=== PATIENT | female | born 1945 | race Caucasian/White ===

== ENCOUNTER 2017-03-17 16:19 | Inpatient (IN) | payer OTHER, MEDICARE ==
[~2017-03-17] VITALS: Ht 167.6 cm; Wt 86.2 kg
[~2017-03-17 16:19] MED LIST: CYPR4TAB34 PO; DULO60CA41 PO; IMII6 SQ; LISI-600 PO; OXYC20TA4 PO; POTA20TA83 PO; PREG75CA PO; SIMV40TA5 PO; ZOLP5TAB2 PO
[2017-03-17 16:20] VITALS: BP_SYST 101
[2017-03-17] MEDS ORDERED: DILTIAZEM HCL 125 MG/25 ML VIAL IV ONE (16:30)
[2017-03-17] MEDS ORDERED: MORP30TA59 PO (16:50)
[2017-03-17] MEDS ORDERED: WARF2.5T2 PO (16:50)
[2017-03-17] MEDS ORDERED: NOR10 PO (16:50)
[2017-03-17] MEDS ORDERED: LIP20 PO (16:50)
[2017-03-17] MEDS ORDERED: SOTA80TA PO (16:50)
[2017-03-17] MEDS ORDERED: HYDROmorphone 1 MG INJ. 1 MG/ML AMPUL IVP ONE (17:00)
[2017-03-17] MEDS ORDERED: NACL 0.9% 1,000 ML IV ONE (17:00)
[2017-03-17] MEDS ORDERED: DILTIAZEM HCL 25 MG/5 ML VIAL IVP ONE (17:00)
[2017-03-17 17:05] LABS: ANION GAP 12 (5-15); CHLORIDE 103 mmol/L (98-107); CREATININE 0.72 mg/dL (0.55-1.30); GLUCOSE 142 mg/dL (70-99); POTASSIUM 3.4 mmol/L (3.5-5.1); SODIUM SERUM 137 mmol/L (136-145); UREA NITROGEN, BLOOD 20 mg/dL (8-21)
[2017-03-17 17:10] LABS: ALANINE AMINOTRANSFERASE 30 U/L (12-78); ALBUMIN 3.2 g/dL (3.4-4.8); ASPARTATE AMINOTRANSFERASE 29 U/L (10-37); LIPASE 100 U/L (73-393)
[2017-03-17 17:16] LABS: BASOPHILS % (AUTO) 0.4 % (0.0-2.0); EOSINOPHILS % (AUTO) 0.1 % (0.0-4.0); HEMOGLOBIN 16.3 g/dL (12.0-16.0); LYMPHOCYTES % (AUTO) 12.4 % (20.5-51.5); MEAN CORPUSCULAR HEMOGLOBIN 29 pg (27-31); MEAN CORPUSCULAR HGB CONC 33 % (32-36); MEAN CORPUSCULAR VOLUME 87 fL (79.0-98.0); MONOCYTES # (AUTO) 0.6 K/uL (0.0-1.0); MONOCYTES % (AUTO) 7.6 % (1.7-9.3); NEUTROPHILS # (AUTO) 6.3 K/uL (1.8-7.7); NEUTROPHILS % (AUTO) 79.5 % (40.0-70.0); RED BLOOD CELL COUNT(AUTO) 5.66 MIL/uL (4.2-6.2); RED CELL DISTRIBUTION WIDTH 12.6 % (9.0-15.0); WHITE BLOOD COUNT (AUTO) 7.9 K/uL (4.8-10.8)
[2017-03-17 17:26] LABS: INR 4.9 (0.8-1.2); PROTHROMBIN TIME 51.2 SECS (9.5-12.5)
[2017-03-17 17:33] LABS: PLATELET COUNT (AUTO) 186 K/uL (130-430)
[2017-03-17 18:10] LABS: BILIRUBIN,URINE 1+ (NEGATIVE); CLARITY/URINE CLEAR (CLEAR); COLOR,URINE AMBER (YELLOW); GLUCOSE,URINE NEGATIVE (NEGATIVE); KETONES,URINE TRACE (NEGATIVE); LEUKOCYTE ESTERASE ,URINE NEGATIVE (NEGATIVE); NITRITE, URINE NEGATIVE (NEGATIVE); PH,URINE 6.5 (5.0-8.0); PROTEIN URINE 2+ (NEGATIVE); UROBILINOGEN,URINE 0.2 (0.2-1.0)
[2017-03-17 18:20] LABS: BLOOD, URINE TRACE (NEGATIVE)
[2017-03-17 18:31] LABS: BACTERIA,URINE FEW /HPF (None Seen)
[2017-03-17 18:32] LABS: MUCUS,URINE 2+ /LPF (None Seen)
[2017-03-17] MEDS ORDERED: DIPHENOXYLATE HCL/ATROP SULF 2.5 MG TAB PO ONE (18:45)
[2017-03-17 19:20] VITALS: BP_SYST 135
[2017-03-17 19:27] VITALS: BP_SYST 117
[2017-03-17] MEDS ORDERED: MORPHINE SULFATE 30 MG TABLET.SA PO SCH (21:00)
[2017-03-17] MEDS: ATORVASTATIN 20 MG TABLET PO SCH (21:19)
[2017-03-17] MEDS: DULoxetine HCL 30 MG CAPSULE.DR (CYMBALTA) PO SCH (21:19)
[2017-03-17] MEDS: SOTALOL HCL 80 MG TABLET PO SCH (21:21)
[2017-03-17] MEDS: CIPROFLOXACIN HCL 500 MG TABLET PO SCH (21:21)
[2017-03-17] MEDS: PREGABALIN 75 MG CAPSULE (LYRICA) PO SCH (21:21)
[2017-03-17] MEDS ORDERED: ZOLPIDEM TARTRATE 5 MG TABLET PO PRN (21:30)
[2017-03-17] MEDS: ZOLPIDEM TARTRATE 5 MG TABLET PO PRN (21:41)
[2017-03-17] MEDS: NACL 0.9% 1,000 ML IV SCH (21:42)
[2017-03-18] VITALS: BP_SYST 111
[2017-03-18] MEDS: HYDROmorphone 1 MG INJ. 1 MG/ML AMPUL IM PRN ×4 (00:09→19:03)
[2017-03-18 07:33] LABS: HEMATOCRIT 43.5 % (36-48); HEMOGLOBIN 14.6 g/dL (12.0-16.0); MEAN CORPUSCULAR HEMOGLOBIN 30 pg (27-31); MEAN CORPUSCULAR HGB CONC 34 % (32-36); MEAN CORPUSCULAR VOLUME 88 fL (79.0-98.0); PLATELET COUNT (AUTO) 177 K/uL (130-430); RED BLOOD CELL COUNT(AUTO) 4.93 MIL/uL (4.2-6.2); RED CELL DISTRIBUTION WIDTH 12.3 % (9.0-15.0); WHITE BLOOD COUNT (AUTO) 4.1 K/uL (4.8-10.8)
[2017-03-18 07:45] LABS: INR 3.1 (0.8-1.2)
[2017-03-18 08:05] LABS: ALANINE AMINOTRANSFERASE 26 U/L (12-78); ALBUMIN 2.7 g/dL (3.4-4.8); ANION GAP 9 (5-15); ASPARTATE AMINOTRANSFERASE 22 U/L (10-37); CALCIUM 7.4 mg/dL (8.4-11.0); CHLORIDE 104 mmol/L (98-107); CREATININE 0.52 mg/dL (0.55-1.30); GLUCOSE 91 mg/dL (70-99); SODIUM SERUM 137 mmol/L (136-145); TOTAL BILIRUBIN 1.3 mg/dL (0.0-1.0); UREA NITROGEN, BLOOD 17 mg/dL (8-21)
[2017-03-18 08:20] LABS: PROTHROMBIN TIME 32.4 SECS (9.5-12.5)
[2017-03-18 08:24] LABS: ATYPICAL LYMPHOCYTES % 8 % (0-0); BASOPHILS % (MANUAL) 0 % (0-2); EOSINOPHILS % (MANUAL) 0 % (0-7); LYMPHOCYTES % (MANUAL) 26 % (20-46); MONOCYTES % (MANUAL) 6 % (0-11)
[2017-03-18 08:38] LABS: POTASSIUM 2.4 mmol/L (3.5-5.1)
[2017-03-18 08:50] VITALS: BP_SYST 109
[2017-03-18] MEDS ORDERED: POTASSIUM CHLORIDE 60 MEQ in NS 500 ML IV SCH (09:06)
[2017-03-18] MEDS: SOTALOL HCL 80 MG TABLET PO SCH ×2 (09:13→21:14)
[2017-03-18] MEDS: PREGABALIN 75 MG CAPSULE (LYRICA) PO SCH ×2 (09:14→21:13)
[2017-03-18] MEDS: CIPROFLOXACIN HCL 500 MG TABLET PO SCH ×2 (09:14→21:25)
[2017-03-18] MEDS: DULoxetine HCL 30 MG CAPSULE.DR (CYMBALTA) PO SCH ×2 (09:14→21:14)
[2017-03-18] MEDS: amLODIPine BESYLATE 10 MG TABLET PO SCH (09:14)
[2017-03-18] MEDS: NACL 0.9% 1,000 ML IV SCH ×2 (09:15→21:27)
[2017-03-18 12:55] VITALS: BP_SYST 125
[2017-03-18 17:09] VITALS: BP_SYST 128
[2017-03-18] MEDS ORDERED: WARFARIN SODIUM 2.5 MG TABLET PO SCH (18:00)
[2017-03-18 20:00] VITALS: BP_SYST 117
[2017-03-18] MEDS ORDERED: ZOLPIDEM TARTRATE 5 MG TABLET PO SCH (21:00)
[2017-03-18] MEDS: ZOLPIDEM TARTRATE 5 MG TABLET PO PRN (21:13)
[2017-03-18] MEDS: ATORVASTATIN 20 MG TABLET PO SCH (21:14)
[2017-03-19 01:21] VITALS: BP_SYST 128
[2017-03-19 08:00] VITALS: BP_SYST 135
[2017-03-19 08:22] LABS: BASOPHILS % (AUTO) 0.3 % (0.0-2.0); EOSINOPHILS # (AUTO) 0.2 K/uL (0.0-0.4); EOSINOPHILS % (AUTO) 2.8 % (0.0-4.0); HEMATOCRIT 49.2 % (36-48); HEMOGLOBIN 15.9 g/dL (12.0-16.0); LYMPHOCYTES # (AUTO) 1.5 K/uL (1.0-5.5); LYMPHOCYTES % (AUTO) 19.9 % (20.5-51.5); MEAN CORPUSCULAR HEMOGLOBIN 29 pg (27-31); MEAN CORPUSCULAR HGB CONC 32 % (32-36); MEAN CORPUSCULAR VOLUME 89 fL (79.0-98.0); MONOCYTES # (AUTO) 0.5 K/uL (0.0-1.0); MONOCYTES % (AUTO) 7.1 % (1.7-9.3); NEUTROPHILS # (AUTO) 5.4 K/uL (1.8-7.7); NEUTROPHILS % (AUTO) 69.9 % (40.0-70.0); PLATELET COUNT (AUTO) 219 K/uL (130-430); RED BLOOD CELL COUNT(AUTO) 5.55 MIL/uL (4.2-6.2); RED CELL DISTRIBUTION WIDTH 12.6 % (9.0-15.0); WHITE BLOOD COUNT (AUTO) 7.6 K/uL (4.8-10.8)
[2017-03-19 08:36] LABS: INR 2.9 (0.8-1.2); PROTHROMBIN TIME 29.7 SECS (9.5-12.5)
[2017-03-19] MEDS: amLODIPine BESYLATE 10 MG TABLET PO SCH (08:44)
[2017-03-19] MEDS: HYDROmorphone 1 MG INJ. 1 MG/ML AMPUL IM PRN ×2 (08:45→18:44)
[2017-03-19] MEDS: SOTALOL HCL 80 MG TABLET PO SCH ×2 (08:46→20:50)
[2017-03-19] MEDS: DULoxetine HCL 30 MG CAPSULE.DR (CYMBALTA) PO SCH ×2 (08:46→20:49)
[2017-03-19] MEDS: PREGABALIN 75 MG CAPSULE (LYRICA) PO SCH ×2 (08:46→20:49)
[2017-03-19 08:50] LABS: ALANINE AMINOTRANSFERASE 29 U/L (12-78); ALBUMIN 3.3 g/dL (3.4-4.8); ANION GAP 12 (5-15); ASPARTATE AMINOTRANSFERASE 24 U/L (10-37); CALCIUM 7.7 mg/dL (8.4-11.0); CHLORIDE 105 mmol/L (98-107); CREATININE 0.41 mg/dL (0.55-1.30); GLUCOSE 91 mg/dL (70-99); LIPASE 178 U/L (73-393); SODIUM SERUM 137 mmol/L (136-145); THYROID STIMULATING HORMONE 1.21 uIu/mL (0.34-4.82); UREA NITROGEN, BLOOD 6 mg/dL (8-21)
[2017-03-19 08:56] LABS: POTASSIUM 2.8 mmol/L (3.5-5.1)
[2017-03-19] MEDS: NACL 0.9% 1,000 ML IV SCH (10:07)
[2017-03-19] MEDS: POTASSIUM CHLORIDE 20 MEQ/PKT PACKET PO SCH ×2 (10:07→14:03)
[2017-03-19] MEDS: CIPROFLOXACIN HCL 500 MG TABLET PO SCH ×2 (10:10→21:57)
[2017-03-19 12:48] VITALS: BP_SYST 123
[2017-03-19] MEDS ORDERED: LOPERAMIDE HCL 2 MG CAPSULE PO PRN (13:45)
[2017-03-19 16:13] LABS: POTASSIUM 3.7 mmol/L (3.5-5.1)
[2017-03-19 16:37] VITALS: BP_SYST 123
[2017-03-19 20:00] VITALS: BP_SYST 123
[2017-03-19] MEDS: ATORVASTATIN 20 MG TABLET PO SCH (20:49)
[2017-03-19] MEDS: ZOLPIDEM TARTRATE 5 MG TABLET PO PRN (21:58)
[2017-03-20 00:38] VITALS: BP_SYST 140
[2017-03-20] MEDS: NACL 0.9% 1,000 ML IV SCH (00:50)
[2017-03-20 07:07] LABS: HEMATOCRIT 47.5 % (36-48); HEMOGLOBIN 15.7 g/dL (12.0-16.0); MEAN CORPUSCULAR HEMOGLOBIN 29 pg (27-31); MEAN CORPUSCULAR HGB CONC 33 % (32-36); MEAN CORPUSCULAR VOLUME 89 fL (79.0-98.0); PLATELET COUNT (AUTO) 199 K/uL (130-430); RED BLOOD CELL COUNT(AUTO) 5.37 MIL/uL (4.2-6.2); RED CELL DISTRIBUTION WIDTH 12.8 % (9.0-15.0); WHITE BLOOD COUNT (AUTO) 7.3 K/uL (4.8-10.8)
[2017-03-20 08:00] VITALS: BP_SYST 135
[2017-03-20] MEDS ORDERED: CIPR-211 PO (08:16)
[2017-03-20 08:25] LABS: ALANINE AMINOTRANSFERASE 30 U/L (12-78); ALBUMIN 3.2 g/dL (3.4-4.8); ANION GAP 14 (5-15); ASPARTATE AMINOTRANSFERASE 28 U/L (10-37); CHLORIDE 106 mmol/L (98-107); CREATININE 0.48 mg/dL (0.55-1.30); GLUCOSE 107 mg/dL (70-99); POTASSIUM 3.3 mmol/L (3.5-5.1); SODIUM SERUM 137 mmol/L (136-145); TOTAL BILIRUBIN 0.9 mg/dL (0.0-1.0); UREA NITROGEN, BLOOD 4 mg/dL (8-21)
[2017-03-20] MEDS: PREGABALIN 75 MG CAPSULE (LYRICA) PO SCH (09:39)
[2017-03-20] MEDS: DULoxetine HCL 30 MG CAPSULE.DR (CYMBALTA) PO SCH (09:40)
[2017-03-20] MEDS: CIPROFLOXACIN HCL 500 MG TABLET PO SCH (09:40)
[2017-03-20] MEDS: SOTALOL HCL 80 MG TABLET PO SCH (09:42)
[2017-03-20] MEDS: amLODIPine BESYLATE 10 MG TABLET PO SCH (09:42)
[2017-03-20 09:51] LABS: INR 1.8 (0.8-1.2)
[2017-03-20 10:00] LABS: PROTHROMBIN TIME 18.8 SECS (9.5-12.5)
[2017-03-20 11:39] LABS: ATYPICAL LYMPHOCYTES % 1 % (0-0); BAND % (MANUAL) 0 % (0-6); BASOPHILS % (MANUAL) 0 % (0-2); EOSINOPHILS % (MANUAL) 0 % (0-7); LYMPHOCYTES % (MANUAL) 35 % (20-46); MONOCYTES % (MANUAL) 10 % (0-11)
[2017-03-20 11:43] VITALS: BP_SYST 113
[2017-03-20 12:00] VITALS: BP_SYST 134
[2017-03-20] MEDS ORDERED: POTASSIUM CHLORIDE 20 MEQ TAB.PRT.SR PO ONE (12:15)
[2017-03-20] MEDS ORDERED: WARFARIN SODIUM 2 MG TABLET PO SCH (18:00)
== END 2017-03-20 12:30 | disposition home or self-care (01) | DRG 281 ==
LOC: SED 16:19 → STU 18:38 → SMU 03-19 09:36
PROVIDERS: ADMIT Internal Medicine Hospice and Palliative Medicine; ATTEND Internal Medicine Hospice and Palliative Medicine
DX: I21.4 Non-ST elevation (NSTEMI) myocardial infarction (principal); I48.92 Unspecified atrial flutter; I95.9 Hypotension, unspecified; E86.0 Dehydration; I48.0 Paroxysmal atrial fibrillation; E87.6 Hypokalemia; I24.8 Other forms of acute ischemic heart disease; K52.9 Noninfective gastroenteritis and colitis, unspecified; I10 Essential (primary) hypertension; G89.4 Chronic pain syndrome; M79.7 Fibromyalgia; E66.9 Obesity, unspecified; M54.9 Dorsalgia, unspecified; I49.9 Cardiac arrhythmia, unspecified; Z85.038 Personal history of other malignant neoplasm of large intestine; Z79.01 Long term (current) use of anticoagulants; Z85.41 Personal history of malignant neoplasm of cervix uteri; Z90.49 Acquired absence of other specified parts of digestive tract; Z90.710 Acquired absence of both cervix and uterus; Z92.21 Personal history of antineoplastic chemotherapy; Z79.899 Other long term (current) drug therapy; Z68.30 Body mass index [BMI] 30.0-30.9, adult
CPT/HCPCS: 36415; 71010; 80053; 81000-TC; 82272; 83605; 83690-TC; 83735-TC; 84132-TC; 84443-TC; 84484; 85007; 85025; 85027; 85379; 85610-TC; 85730-TC; 87040-TC; 87045-TC; 87046; 87230-TC; 89055; 93005; 93306; 96361; 96374; 96375; 99291; J1170; J3480; J3490; J7030; J7040

== ENCOUNTER 2017-04-10 14:29 | Inpatient (IN) | payer OTHER, MEDICARE ==
[~2017-04-10] VITALS: Ht 167.6 cm; Wt 85.7 kg
[2017-04-10 14:29] VITALS: BP_SYST 93
[~2017-04-10 14:29] MED LIST changes: +CIPR-211 PO; -CYPR4TAB34 PO; -IMII6 SQ; +LIP20 PO; -LISI-600 PO; +MORP30TA59 PO; +NOR10 PO; -OXYC20TA4 PO; -POTA20TA83 PO; -SIMV40TA5 PO; +SOTA80TA PO; +WARF2.5T2 PO
[2017-04-10] MEDS ORDERED: NACL 0.9% 1,000 ML IV ONE ×2 (15:04→15:15)
[2017-04-10] MEDS ORDERED: ONDANSETRON HCL 4 MG/2 ML VIAL IVP ONE (15:15)
[2017-04-10] MEDS ORDERED: ASPIRIN 325 MG TABLET PO ONE (15:15)
[2017-04-10 15:36] LABS: BASOPHILS # (AUTO) 0.1 K/uL (0.0-0.2); BASOPHILS % (AUTO) 1.3 % (0.0-2.0); EOSINOPHILS % (AUTO) 0.1 % (0.0-4.0); HEMATOCRIT 50.8 % (36-48); HEMOGLOBIN 16.6 g/dL (12.0-16.0); LYMPHOCYTES # (AUTO) 2.3 K/uL (1.0-5.5); LYMPHOCYTES % (AUTO) 36.5 % (20.5-51.5); MEAN CORPUSCULAR HEMOGLOBIN 29 pg (27-31); MEAN CORPUSCULAR HGB CONC 33 % (32-36); MEAN CORPUSCULAR VOLUME 88 fL (79.0-98.0); MONOCYTES # (AUTO) 0.8 K/uL (0.0-1.0); MONOCYTES % (AUTO) 12.7 % (1.7-9.3); NEUTROPHILS # (AUTO) 3.1 K/uL (1.8-7.7); NEUTROPHILS % (AUTO) 49.4 % (40.0-70.0); PLATELET COUNT (AUTO) 148 K/uL (130-430); RED BLOOD CELL COUNT(AUTO) 5.76 MIL/uL (4.2-6.2); RED CELL DISTRIBUTION WIDTH 13.1 % (9.0-15.0); WHITE BLOOD COUNT (AUTO) 6.3 K/uL (4.8-10.8)
[2017-04-10 16:22] LABS: INR 2.2 (0.8-1.2); PROTHROMBIN TIME 22.7 SECS (9.5-12.5)
[2017-04-10 16:28] LABS: ANION GAP 15 (5-15); CALCIUM 9.4 mg/dL (8.4-11.0); CHLORIDE 97 mmol/L (98-107); CREATININE 1.17 mg/dL (0.55-1.30); GLUCOSE 180 mg/dL (70-99); POTASSIUM 3.5 mmol/L (3.5-5.1); SODIUM SERUM 134 mmol/L (136-145); UREA NITROGEN, BLOOD 16 mg/dL (8-21)
[2017-04-10 16:38] LABS: ALANINE AMINOTRANSFERASE 49 U/L (12-78); ALBUMIN 3.8 g/dL (3.4-4.8); AMYLASE 51 U/L (0-100); ASPARTATE AMINOTRANSFERASE 52 U/L (10-37); LIPASE 188 U/L (73-393); TOTAL BILIRUBIN 1.2 mg/dL (0.0-1.0)
[2017-04-10] MEDS ORDERED: OSELTAMIVIR PHOSPHATE 75 MG CAPSULE PO ONE (17:30)
[2017-04-10] MEDS ORDERED: PREG75CA PO (17:56)
[2017-04-10] MEDS ORDERED: ACETAMINOPHEN 325 MG TABLET PO PRN (20:15)
[2017-04-10] MEDS ORDERED: ONDANSETRON HCL 4 MG/2 ML VIAL IVP PRN (20:15)
[2017-04-10] MEDS: MORPHINE 2 MG/ML INJ. SYRINGE IVP PRN (23:27)
[2017-04-10] MEDS: NACL 0.9% 1,000 ML IV SCH (23:27)
[2017-04-10 23:32] LABS: BILIRUBIN,URINE 1+ (NEGATIVE); BLOOD, URINE NEGATIVE (NEGATIVE); CLARITY/URINE HAZY (CLEAR); COLOR,URINE YELLOW (YELLOW); GLUCOSE,URINE NEGATIVE (NEGATIVE); KETONES,URINE 1+ (NEGATIVE); LEUKOCYTE ESTERASE ,URINE NEGATIVE (NEGATIVE); NITRITE, URINE NEGATIVE (NEGATIVE); PROTEIN URINE 1+ (NEGATIVE)
[2017-04-10 23:41] LABS: BACTERIA,URINE MODERATE /HPF (None Seen); FINE GRANULAR CASTS,URINE 0-10 /LPF (None Seen); MUCUS,URINE 2+ /LPF (None Seen); RBC,URINE 0-3 /HPF (0-3); WBC,URINE 0-3 /HPF (0-3); YEAST,URINE Few /HPF (None Seen)
[2017-04-10] MEDS ORDERED: LORazepam 2 MG/ML VIAL IVP PRN (23:45)
[2017-04-10] MEDS ORDERED: BISACODYL 10 MG/SUPPOSITORY RC PRN (23:45)
[2017-04-10] MEDS ORDERED: POTASSIUM CHLORIDE 20 MEQ TAB.PRT.SR PO PRN (23:45)
[2017-04-10] MEDS ORDERED: SIMETHICONE 80 MG TAB.CHEW PO PRN (23:45)
[2017-04-10 23:49] VITALS: BP_SYST 112
[2017-04-11] VITALS (8 sets, daily range): BP systolic 71–150
[2017-04-11] MEDS: ZOLPIDEM TARTRATE 5 MG TABLET PO PRN ×2 (00:03→21:00)
[2017-04-11] MEDS: HYDROcodone/ACETAMIN 10-325 MG TAB PO PRN ×2 (01:35→17:20)
[2017-04-11 08:00] LABS: BASOPHILS % (AUTO) 0.2 % (0.0-2.0); EOSINOPHILS % (AUTO) 0.7 % (0.0-4.0); HEMATOCRIT 42.3 % (36-48); HEMOGLOBIN 14.3 g/dL (12.0-16.0); LYMPHOCYTES # (AUTO) 1.8 K/uL (1.0-5.5); LYMPHOCYTES % (AUTO) 36.5 % (20.5-51.5); MEAN CORPUSCULAR HEMOGLOBIN 30 pg (27-31); MEAN CORPUSCULAR HGB CONC 34 % (32-36); MEAN CORPUSCULAR VOLUME 89 fL (79.0-98.0); MONOCYTES # (AUTO) 0.9 K/uL (0.0-1.0); NEUTROPHILS # (AUTO) 2.1 K/uL (1.8-7.7); PLATELET COUNT (AUTO) 134 K/uL (130-430); RED BLOOD CELL COUNT(AUTO) 4.75 MIL/uL (4.2-6.2); WHITE BLOOD COUNT (AUTO) 4.8 K/uL (4.8-10.8)
[2017-04-11 08:34] LABS: AMYLASE 45 U/L (0-100); ANION GAP 14 (5-15); CALCIUM 8.3 mg/dL (8.4-11.0); CHLORIDE 101 mmol/L (98-107); CHOLESTEROL 146 mg/dL (<200); CREATININE 0.69 mg/dL (0.55-1.30); FREE T4 (FREE THYROXINE) 0.8 ng/dL (0.6-1.6); GLUCOSE 94 mg/dL (70-99); HDL CHOLESTEROL 55 mg/dL (>55); LDL CHOLESTEROL 68 mg/dL (<100); LIPASE 175 U/L (73-393); PHOSPHORUS 2.9 mg/dL (2.7-4.5); SODIUM SERUM 136 mmol/L (136-145); THYROID STIMULATING HORMONE 0.72 uIu/mL (0.34-4.82); TRIGLYCERIDES 81 mg/dL (30-150); UREA NITROGEN, BLOOD 17 mg/dL (8-21)
[2017-04-11 09:13] LABS: POTASSIUM 2.5 mmol/L (3.5-5.1)
[2017-04-11] MEDS: DOCUSATE SODIUM 100 MG CAPSULE PO SCH ×2 (09:24→20:58)
[2017-04-11] MEDS: MORPHINE 2 MG/ML INJ. SYRINGE IVP PRN (09:25)
[2017-04-11] MEDS ORDERED: POTASSIUM CHLORIDE 20 MEQ TAB.PRT.SR PO ONE (11:30)
[2017-04-11] MEDS ORDERED: OSELTAMIVIR PHOSPHATE 75 MG CAPSULE PO ONE (12:15)
[2017-04-11] MEDS ORDERED: LevALBUTEROL HCL 1.25 MG/0.5 ML *CONC.* VIAL.NEB (XOPENEX CONC.) INH PRN (12:30)
[2017-04-11] MEDS ORDERED: NACL 0.9% 1,000 ML IV ONE (12:30)
[2017-04-11 12:46] LABS: NEUTROPHILS % (AUTO) 44.6 % (40.0-70.0)
[2017-04-11] MEDS ORDERED: DILTIAZEM HCL 25 MG/5 ML VIAL IVP ONE (13:15)
[2017-04-11] MEDS ORDERED: DILTIAZEM HCL 30 MG TABLET PO ONE (13:30)
[2017-04-11] MEDS ORDERED: methylPREDNISolone SOD SUCC 40 MG/ML VIAL IVP ONE (13:30)
[2017-04-11] MEDS: LevALBUTEROL HCL 1.25 MG/0.5 ML *CONC.* VIAL.NEB (XOPENEX CONC.) INH SCH ×2 (13:43→19:49)
[2017-04-11] MEDS: NACL 0.9% 1,000 ML IV SCH (14:50)
[2017-04-11] MEDS: FLUCONAZOLE 200 mg/ NS 100 ML IV SCH (14:58)
[2017-04-11] MEDS: LEVOFLOXACIN 250 MG/D5W 50 ML IV SCH (17:14)
[2017-04-11] MEDS: WARFARIN SODIUM 2.5 MG TABLET PO SCH (17:15)
[2017-04-11] MEDS: PREGABALIN 75 MG CAPSULE (LYRICA) PO SCH (20:58)
[2017-04-11] MEDS: ATORVASTATIN 20 MG TABLET PO SCH (20:58)
[2017-04-11] MEDS: SOTALOL HCL 80 MG TABLET PO SCH (20:59)
[2017-04-11] MEDS: DILTIAZEM HCL 30 MG TABLET PO SCH (20:59)
[2017-04-11] MEDS: OSELTAMIVIR PHOSPHATE 75 MG CAPSULE PO SCH (21:00)
[2017-04-11] MEDS: MORPHINE SULFATE 30 MG TABLET.SA PO SCH (21:00)
[2017-04-11] MEDS: DULoxetine HCL 30 MG CAPSULE.DR (CYMBALTA) PO SCH (21:01)
[2017-04-11] MEDS ORDERED: KCL 40 mEq in 100 mL (PREMIX) 100 ML IV ONE (22:00)
[2017-04-12] VITALS: BP_SYST 98
[2017-04-12] MEDS: LevALBUTEROL HCL 1.25 MG/0.5 ML *CONC.* VIAL.NEB (XOPENEX CONC.) INH SCH ×4 (01:00→19:40)
[2017-04-12] MEDS: NACL 0.9% 1,000 ML IV SCH ×2 (01:27→11:43)
[2017-04-12] MEDS: DILTIAZEM HCL 30 MG TABLET PO SCH ×3 (06:08→22:03)
[2017-04-12 07:38] LABS: BASOPHILS % (AUTO) 0.1 % (0.0-2.0); EOSINOPHILS % (AUTO) 0.1 % (0.0-4.0); HEMATOCRIT 38.9 % (36-48); HEMOGLOBIN 13.3 g/dL (12.0-16.0); LYMPHOCYTES # (AUTO) 1.5 K/uL (1.0-5.5); LYMPHOCYTES % (AUTO) 41.6 % (20.5-51.5); MEAN CORPUSCULAR HEMOGLOBIN 30 pg (27-31); MEAN CORPUSCULAR HGB CONC 34 % (32-36); MEAN CORPUSCULAR VOLUME 88 fL (79.0-98.0); MONOCYTES # (AUTO) 0.5 K/uL (0.0-1.0); MONOCYTES % (AUTO) 14.5 % (1.7-9.3); NEUTROPHILS # (AUTO) 1.7 K/uL (1.8-7.7); NEUTROPHILS % (AUTO) 43.7 % (40.0-70.0); PLATELET COUNT (AUTO) 123 K/uL (130-430); RED BLOOD CELL COUNT(AUTO) 4.44 MIL/uL (4.2-6.2); RED CELL DISTRIBUTION WIDTH 13.4 % (9.0-15.0); WHITE BLOOD COUNT (AUTO) 3.7 K/uL (4.8-10.8)
[2017-04-12 07:42] LABS: ANION GAP 7 (5-15); CALCIUM 7.6 mg/dL (8.4-11.0); CHLORIDE 106 mmol/L (98-107); CREATININE 0.57 mg/dL (0.55-1.30); GLUCOSE 139 mg/dL (70-99); POTASSIUM 3.9 mmol/L (3.5-5.1); SODIUM SERUM 137 mmol/L (136-145); UREA NITROGEN, BLOOD 10 mg/dL (8-21)
[2017-04-12 08:00] VITALS: BP_SYST 125
[2017-04-12 08:03] LABS: INR 1.8 (0.8-1.2); PROTHROMBIN TIME 18.4 SECS (9.5-12.5)
[2017-04-12] MEDS: amLODIPine BESYLATE 10 MG TABLET PO SCH (08:43)
[2017-04-12] MEDS: SOTALOL HCL 80 MG TABLET PO SCH ×2 (08:43→22:03)
[2017-04-12] MEDS: OSELTAMIVIR PHOSPHATE 75 MG CAPSULE PO SCH ×2 (08:43→22:03)
[2017-04-12] MEDS: PREGABALIN 75 MG CAPSULE (LYRICA) PO SCH ×2 (08:44→22:03)
[2017-04-12] MEDS: DOCUSATE SODIUM 100 MG CAPSULE PO SCH ×2 (08:44→22:02)
[2017-04-12] MEDS: MORPHINE SULFATE 30 MG TABLET.SA PO SCH ×2 (08:44→22:01)
[2017-04-12] MEDS: DULoxetine HCL 30 MG CAPSULE.DR (CYMBALTA) PO SCH ×2 (08:44→22:03)
[2017-04-12] MEDS ORDERED: VANCOMYCIN HCL 1 GM/NS PREMIX 250 ML IV ONE (10:45)
[2017-04-12] MEDS ORDERED: MAGNESIUM SULFATE 50 ML IV ONE (10:45)
[2017-04-12 12:10] VITALS: BP_SYST 110
[2017-04-12] MEDS: LEVOFLOXACIN 250 MG/D5W 50 ML IV SCH (12:28)
[2017-04-12] MEDS: FLUCONAZOLE 200 mg/ NS 100 ML IV SCH (13:44)
[2017-04-12 16:00] VITALS: BP_SYST 112
[2017-04-12] MEDS: WARFARIN SODIUM 2.5 MG TABLET PO SCH (18:08)
[2017-04-12 20:00] VITALS: BP_SYST 113
[2017-04-12] MEDS: ATORVASTATIN 20 MG TABLET PO SCH (22:01)
[2017-04-12] MEDS: ZOLPIDEM TARTRATE 5 MG TABLET PO PRN (22:03)
[2017-04-13] VITALS: BP_SYST 116
[2017-04-13] MEDS: LevALBUTEROL HCL 1.25 MG/0.5 ML *CONC.* VIAL.NEB (XOPENEX CONC.) INH SCH ×3 (01:00→13:48)
[2017-04-13] MEDS: NACL 0.9% 1,000 ML IV SCH ×2 (02:35→08:49)
[2017-04-13 03:06] LABS: T4 (THYROXINE) 9.5 ug/dL (4.5-12.0)
[2017-04-13] MEDS: DILTIAZEM HCL 30 MG TABLET PO SCH ×2 (06:38→14:09)
[2017-04-13 07:50] LABS: BASOPHILS % (AUTO) 0.3 % (0.0-2.0); EOSINOPHILS % (AUTO) 0.3 % (0.0-4.0); HEMOGLOBIN 13.4 g/dL (12.0-16.0); LYMPHOCYTES # (AUTO) 1.9 K/uL (1.0-5.5); LYMPHOCYTES % (AUTO) 45.1 % (20.5-51.5); MEAN CORPUSCULAR HEMOGLOBIN 30 pg (27-31); MEAN CORPUSCULAR HGB CONC 34 % (32-36); MEAN CORPUSCULAR VOLUME 88 fL (79.0-98.0); MONOCYTES # (AUTO) 0.5 K/uL (0.0-1.0); MONOCYTES % (AUTO) 12.4 % (1.7-9.3); NEUTROPHILS # (AUTO) 1.8 K/uL (1.8-7.7); NEUTROPHILS % (AUTO) 41.9 % (40.0-70.0); PLATELET COUNT (AUTO) 125 K/uL (130-430); RED BLOOD CELL COUNT(AUTO) 4.44 MIL/uL (4.2-6.2); RED CELL DISTRIBUTION WIDTH 13.1 % (9.0-15.0); WHITE BLOOD COUNT (AUTO) 4.2 K/uL (4.8-10.8)
[2017-04-13 08:00] VITALS: BP_SYST 104
[2017-04-13 08:44] LABS: ALANINE AMINOTRANSFERASE 32 U/L (12-78); ALBUMIN 2.8 g/dL (3.4-4.8); ANION GAP 9 (5-15); ASPARTATE AMINOTRANSFERASE 31 U/L (10-37); CALCIUM 7.7 mg/dL (8.4-11.0); CHLORIDE 105 mmol/L (98-107); CREATININE 0.54 mg/dL (0.55-1.30); GLUCOSE 85 mg/dL (70-99); SODIUM SERUM 137 mmol/L (136-145); TOTAL BILIRUBIN 0.6 mg/dL (0.0-1.0); UREA NITROGEN, BLOOD 7 mg/dL (8-21)
[2017-04-13] MEDS: MORPHINE SULFATE 30 MG TABLET.SA PO SCH (08:54)
[2017-04-13] MEDS: PREGABALIN 75 MG CAPSULE (LYRICA) PO SCH (08:54)
[2017-04-13] MEDS: OSELTAMIVIR PHOSPHATE 75 MG CAPSULE PO SCH (08:55)
[2017-04-13] MEDS: SOTALOL HCL 80 MG TABLET PO SCH (08:55)
[2017-04-13] MEDS: DULoxetine HCL 30 MG CAPSULE.DR (CYMBALTA) PO SCH (08:55)
[2017-04-13] MEDS: DOCUSATE SODIUM 100 MG CAPSULE PO SCH (08:55)
[2017-04-13] MEDS: amLODIPine BESYLATE 10 MG TABLET PO SCH (08:56)
[2017-04-13 09:14] LABS: POTASSIUM 2.9 mmol/L (3.5-5.1)
[2017-04-13] MEDS ORDERED: POTASSIUM CHLORIDE 20 MEQ TAB.PRT.SR PO ONE (09:30)
[2017-04-13 09:39] LABS: PROTHROMBIN TIME 20.2 SECS (9.5-12.5)
[2017-04-13 12:25] VITALS: BP_SYST 105
[2017-04-13] MEDS: LEVOFLOXACIN 250 MG/D5W 50 ML IV SCH (14:02)
[2017-04-13] MEDS: FLUCONAZOLE 200 mg/ NS 100 ML IV SCH (14:06)
[2017-04-13 15:12] LABS: HEMOGLOBIN A1C 5.9 % (4.8-5.6)
[2017-04-13 15:43] VITALS: BP_SYST 100
[2017-04-13 16:37] VITALS: BP_SYST 100
== END 2017-04-13 16:14 | disposition home or self-care (01) | DRG 872 ==
LOC: SED 14:29 → SMU 17:36 → STU 04-11 23:31 → SMU 04-12 13:17
PROVIDERS: ADMIT Family Medicine; ATTEND Family Medicine
DX: A41.9 Sepsis, unspecified organism (principal); I95.9 Hypotension, unspecified; G62.9 Polyneuropathy, unspecified; I48.91 Unspecified atrial fibrillation; N39.0 Urinary tract infection, site not specified; E83.42 Hypomagnesemia; B48.8 Other specified mycoses; M54.5 Low back pain; B37.9 Candidiasis, unspecified; E86.0 Dehydration; I10 Essential (primary) hypertension; R55 Syncope and collapse; J11.1 Influenza due to unidentified influenza virus with other respiratory manifestations; M79.7 Fibromyalgia; G47.00 Insomnia, unspecified; G89.29 Other chronic pain; E87.6 Hypokalemia; Z79.899 Other long term (current) drug therapy; Z85.038 Personal history of other malignant neoplasm of large intestine; Z85.41 Personal history of malignant neoplasm of cervix uteri; Z90.49 Acquired absence of other specified parts of digestive tract; Z90.710 Acquired absence of both cervix and uterus
CPT/HCPCS: 36415; 71045; 80048; 80053; 80061; 81000-TC; 82150-TC; 82550-TC; 82962; 83036; 83690-TC; 83735-TC; 83880; 84100-TC; 84436; 84439; 84443-TC; 84479; 84484; 85025; 85610-TC; 85730-TC; 86710; 87040-TC; 87081; 87086; 93005; 94640; 94760; 96365; 96375; 99285; G9035; J1030; J1450; J1956; J2270; J2274; J2405; J3370; J3475; J3480; J3490; J7030

== ENCOUNTER 2017-10-25 02:21 | Emergency (ER) | payer MEDICARE, OTHER ==
[~2017-10-25] VITALS: Ht 167.6 cm; Wt 89.8 kg
[~2017-10-25 02:21] MED LIST changes: -CIPR-211 PO; -ZOLP5TAB2 PO
[2017-10-25 02:26] VITALS: BP_SYST 116
[2017-10-25] MEDS ORDERED: HYDROcodone/ACETAMIN 5-325 MG TAB (NORCO/ VICODIN) PO ONE (03:15)
[2017-10-25 04:45] LABS: BASOPHILS # (AUTO) 0.1 K/uL (0.0-0.2); EOSINOPHILS # (AUTO) 0.1 K/uL (0.0-0.4); HEMATOCRIT 41.2 % (36-48); HEMOGLOBIN 13.8 g/dL (12.0-16.0); LYMPHOCYTES # (AUTO) 3.2 K/uL (1.0-5.5); LYMPHOCYTES % (AUTO) 42.4 % (20.5-51.5); MEAN CORPUSCULAR HEMOGLOBIN 30 pg (27-31); MEAN CORPUSCULAR HGB CONC 33 % (32-36); MEAN CORPUSCULAR VOLUME 91 fL (79.0-98.0); MONOCYTES # (AUTO) 0.5 K/uL (0.0-1.0); MONOCYTES % (AUTO) 7.3 % (1.7-9.3); NEUTROPHILS # (AUTO) 3.6 K/uL (1.8-7.7); NEUTROPHILS % (AUTO) 47.3 % (40.0-70.0); PLATELET COUNT (AUTO) 180 K/uL (130-430); RED BLOOD CELL COUNT(AUTO) 4.54 MIL/uL (4.2-6.2); RED CELL DISTRIBUTION WIDTH 13.2 % (9.0-15.0); WHITE BLOOD COUNT (AUTO) 7.5 K/uL (4.8-10.8)
[2017-10-25 04:50] LABS: ANION GAP 6 (5-15); CALCIUM 8.3 mg/dL (8.4-11.0); CHLORIDE 107 mmol/L (98-107); CREATININE 0.76 mg/dL (0.55-1.30); GLUCOSE 135 mg/dL (70-99); POTASSIUM 3.3 mmol/L (3.5-5.1); SODIUM SERUM 140 mmol/L (136-145); UREA NITROGEN, BLOOD 12 mg/dL (8-21)
[2017-10-25 05:05] LABS: PROTHROMBIN TIME 30.1 SECS (9.5-12.5)
[2017-10-25 05:06] LABS: INR 2.9 (0.8-1.2)
[2017-10-25 05:13] VITALS: BP_SYST 129
== END 2017-10-25 05:13 | disposition home or self-care (01) ==
LOC: SED 02:21
DX: S20.211A Contusion of right front wall of thorax, initial encounter (principal); S40.021A Contusion of right upper arm, initial encounter; I48.91 Unspecified atrial fibrillation; M79.7 Fibromyalgia; I10 Essential (primary) hypertension; Z85.41 Personal history of malignant neoplasm of cervix uteri; Z85.038 Personal history of other malignant neoplasm of large intestine; Z79.899 Other long term (current) drug therapy; W01.0XXA Fall on same level from slipping, tripping and stumbling without subsequent striking against object, initial encounter; Y93.89 Activity, other specified; Y92.89 Other specified places as the place of occurrence of the external cause; Y99.8 Other external cause status
CPT/HCPCS: 36415; 71045; 80048; 85025; 85610-TC; 93005; 99285

== ENCOUNTER 2018-01-24 03:59 | Emergency (ER) | payer OTHER, MEDICARE ==
[~2018-01-24] VITALS: Ht 167.6 cm; Wt 86.2 kg
[2018-01-24 04:15] VITALS: BP_SYST 115
[2018-01-24] MEDS ORDERED: HYDROcodone/ACETAMIN 5-325 MG TAB (NORCO/ VICODIN) PO ONE ×2 (04:30)
[2018-01-24] MEDS ORDERED: MORPHINE 4 MG/ML INJ. SYRINGE IM ONE (05:15)
[2018-01-24] MEDS ORDERED: MORPHINE 4 MG/ML INJ. SYRINGE IVP ONE (06:00)
[2018-01-24] MEDS ORDERED: KETAMINE 30 MG/3 ML SYRINGE IVP ONE (06:45)
[2018-01-24 07:53] LABS: BASOPHILS % (AUTO) 0.3 % (0.0-2.0); EOSINOPHILS # (AUTO) 0.1 K/uL (0.0-0.4); EOSINOPHILS % (AUTO) 1.1 % (0.0-4.0); HEMATOCRIT 41.8 % (36-48); LYMPHOCYTES # (AUTO) 2.6 K/uL (1.0-5.5); LYMPHOCYTES % (AUTO) 25.1 % (20.5-51.5); MEAN CORPUSCULAR HEMOGLOBIN 30 pg (27-31); MEAN CORPUSCULAR HGB CONC 33 % (32-36); MEAN CORPUSCULAR VOLUME 90 fL (79.0-98.0); MONOCYTES # (AUTO) 0.6 K/uL (0.0-1.0); MONOCYTES % (AUTO) 5.4 % (1.7-9.3); NEUTROPHILS # (AUTO) 7.2 K/uL (1.8-7.7); NEUTROPHILS % (AUTO) 68.1 % (40.0-70.0); PLATELET COUNT (AUTO) 192 K/uL (130-430); RED BLOOD CELL COUNT(AUTO) 4.65 MIL/uL (4.2-6.2); RED CELL DISTRIBUTION WIDTH 12.7 % (9.0-15.0); WHITE BLOOD COUNT (AUTO) 10.5 K/uL (4.8-10.8)
[2018-01-24 07:55] VITALS: BP_SYST 157
[2018-01-24 08:00] LABS: ANION GAP 9 (5-15); CALCIUM 8.4 mg/dL (8.4-11.0); CHLORIDE 105 mmol/L (98-107); CREATININE 0.82 mg/dL (0.55-1.30); GLUCOSE 116 mg/dL (70-99); POTASSIUM 4.1 mmol/L (3.5-5.1); SODIUM SERUM 140 mmol/L (136-145); UREA NITROGEN, BLOOD 26 mg/dL (8-21)
[2018-01-24 08:11] LABS: ALANINE AMINOTRANSFERASE 28 U/L (12-78); ASPARTATE AMINOTRANSFERASE 21 U/L (10-37); TOTAL BILIRUBIN 0.9 mg/dL (0.0-1.0)
[2018-01-24 08:15] LABS: INR 2.9 (0.8-1.2)
[2018-01-24 08:18] LABS: PROTHROMBIN TIME 30.2 SECS (9.5-12.5)
== END 2018-01-24 07:55 | disposition short-term general hospital (02) ==
LOC: SED 03:59
DX: S06.5X9A Traumatic subdural hemorrhage with loss of consciousness of unspecified duration, initial encounter (principal); M54.2 Cervicalgia; M54.5 Low back pain; I48.91 Unspecified atrial fibrillation; I10 Essential (primary) hypertension; M79.7 Fibromyalgia; Z79.01 Long term (current) use of anticoagulants; Z79.899 Other long term (current) drug therapy; W18.30XA Fall on same level, unspecified, initial encounter; Y93.89 Activity, other specified; Y92.002 Bathroom of unspecified non-institutional (private) residence as the place of occurrence of the external cause; Y99.8 Other external cause status
CPT/HCPCS: 36415; 70450; 72125; 72128; 80053; 84484; 85025; 85610; 85730; 93005; 96372; 96374; 96375; 99285; J2270

== ENCOUNTER 2018-02-04 10:46 | Emergency (ER) | payer OTHER, MEDICARE ==
[~2018-02-04] VITALS: Ht 167.6 cm; Wt 85.3 kg
[2018-02-04 10:46] VITALS: BP_SYST 132
[2018-02-04] MEDS ORDERED: MORPHINE 4 MG/ML INJ. SYRINGE IVP ONE (13:00)
[2018-02-04 14:08] LABS: BASOPHILS # (AUTO) 0.1 K/uL (0.0-0.2); BASOPHILS % (AUTO) 1.3 % (0.0-2.0); EOSINOPHILS # (AUTO) 0.1 K/uL (0.0-0.4); EOSINOPHILS % (AUTO) 1.8 % (0.0-4.0); HEMATOCRIT 46.2 % (36-48); HEMOGLOBIN 14.9 g/dL (12.0-16.0); LYMPHOCYTES # (AUTO) 2.4 K/uL (1.0-5.5); LYMPHOCYTES % (AUTO) 36.6 % (20.5-51.5); MEAN CORPUSCULAR HEMOGLOBIN 30 pg (27-31); MEAN CORPUSCULAR HGB CONC 32 % (32-36); MEAN CORPUSCULAR VOLUME 92 fL (79.0-98.0); MONOCYTES # (AUTO) 0.5 K/uL (0.0-1.0); MONOCYTES % (AUTO) 7.3 % (1.7-9.3); NEUTROPHILS # (AUTO) 3.6 K/uL (1.8-7.7); PLATELET COUNT (AUTO) 215 K/uL (130-430); RED BLOOD CELL COUNT(AUTO) 5.01 MIL/uL (4.2-6.2); RED CELL DISTRIBUTION WIDTH 12.9 % (9.0-15.0); WHITE BLOOD COUNT (AUTO) 6.7 K/uL (4.8-10.8)
[2018-02-04 14:10] LABS: ANION GAP 7 (5-15); CALCIUM 8.9 mg/dL (8.4-11.0); CHLORIDE 105 mmol/L (98-107); CREATININE 0.61 mg/dL (0.55-1.30); GLUCOSE 101 mg/dL (70-99); POTASSIUM 3.4 mmol/L (3.5-5.1); SODIUM SERUM 141 mmol/L (136-145); UREA NITROGEN, BLOOD 15 mg/dL (8-21)
[2018-02-04 14:15] LABS: ALANINE AMINOTRANSFERASE 27 U/L (12-78); ALBUMIN 3.1 g/dL (3.4-4.8); ASPARTATE AMINOTRANSFERASE 19 U/L (10-37); TOTAL BILIRUBIN 0.8 mg/dL (0.0-1.0)
[2018-02-04 14:55] LABS: BILIRUBIN,URINE NEGATIVE (NEGATIVE); BLOOD, URINE NEGATIVE (NEGATIVE); CLARITY/URINE CLEAR (CLEAR); COLOR,URINE YELLOW (YELLOW); GLUCOSE,URINE NEGATIVE (NEGATIVE); KETONES,URINE NEGATIVE (NEGATIVE); LEUKOCYTE ESTERASE ,URINE TRACE (NEGATIVE); NITRITE, URINE NEGATIVE (NEGATIVE); PROTEIN URINE NEGATIVE (NEGATIVE)
[2018-02-04 15:03] LABS: BACTERIA,URINE FEW /HPF (None Seen); MUCUS,URINE 1+ /LPF (None Seen); RBC,URINE 0-3 /HPF (0-3); WBC,URINE 0-3 /HPF (0-3)
[2018-02-04 16:14] VITALS: BP_SYST 130
== END 2018-02-04 16:14 | disposition home or self-care (01) ==
LOC: SED 10:46
DX: S32.019A Unspecified fracture of first lumbar vertebra, initial encounter for closed fracture (principal); I10 Essential (primary) hypertension; M79.7 Fibromyalgia; I48.91 Unspecified atrial fibrillation; Z90.710 Acquired absence of both cervix and uterus; Z79.01 Long term (current) use of anticoagulants; Z79.899 Other long term (current) drug therapy; W01.0XXA Fall on same level from slipping, tripping and stumbling without subsequent striking against object, initial encounter; Y93.89 Activity, other specified; Y92.89 Other specified places as the place of occurrence of the external cause; Y99.8 Other external cause status
CPT/HCPCS: 36415; 72131; 80053; 81000; 85025; 87086; 96374; 99285; J2270

== ENCOUNTER 2018-03-25 10:52 | Emergency (ER) | payer OTHER, MEDICARE ==
[~2018-03-25] VITALS: Ht 167.6 cm; Wt 89.8 kg
[2018-03-25 10:52] VITALS: BP_SYST 129
[2018-03-25] MEDS ORDERED: MORPHINE 4 MG/ML INJ. SYRINGE IM ONE (11:15)
[2018-03-25] MEDS ORDERED: traMADol HCL HCL 50 MG TABLET (ULTRAM) PO ONE (11:45)
[2018-03-25 12:10] VITALS: BP_SYST 129
== END 2018-03-25 12:10 | disposition home or self-care (01) ==
LOC: SED 10:52
DX: S20.211A Contusion of right front wall of thorax, initial encounter (principal); I48.91 Unspecified atrial fibrillation; M79.7 Fibromyalgia; I10 Essential (primary) hypertension; Z85.038 Personal history of other malignant neoplasm of large intestine; Z85.41 Personal history of malignant neoplasm of cervix uteri; Z90.710 Acquired absence of both cervix and uterus; Z79.899 Other long term (current) drug therapy; W01.190A Fall on same level from slipping, tripping and stumbling with subsequent striking against furniture, initial encounter; Y93.89 Activity, other specified; Y92.89 Other specified places as the place of occurrence of the external cause; Y99.8 Other external cause status
CPT/HCPCS: 71100; 96372; 99283; J2270

== ENCOUNTER 2018-05-15 13:23 | Emergency (ER) | payer BC ==
[~2018-05-15] VITALS: Ht 167.6 cm; Wt 81.6 kg
[2018-05-15] MEDS ORDERED: NACL 0.9% 1,000 ML IV ONE (13:31)
[2018-05-15] MEDS ORDERED: FAMOTIDINE 20 MG TABLET PO ONE (13:45)
[2018-05-15 14:03] VITALS: BP_SYST 106
[2018-05-15] MEDS ORDERED: KETOROLAC TROMETHAMINE 60 MG/2 ML VIAL IM ONE (14:30)
[2018-05-15 15:25] LABS: BASOPHILS % (AUTO) 0.6 % (0.0-2.0); EOSINOPHILS # (AUTO) 0.2 K/uL (0.0-0.4); HEMATOCRIT 49.9 % (36-48); HEMOGLOBIN 16.2 g/dL (12.0-16.0); LYMPHOCYTES # (AUTO) 3.1 K/uL (1.0-5.5); LYMPHOCYTES % (AUTO) 41.2 % (20.5-51.5); MEAN CORPUSCULAR HEMOGLOBIN 29 pg (27-31); MEAN CORPUSCULAR HGB CONC 32 % (32-36); MEAN CORPUSCULAR VOLUME 89 fL (79.0-98.0); MONOCYTES # (AUTO) 0.5 K/uL (0.0-1.0); MONOCYTES % (AUTO) 6.2 % (1.7-9.3); NEUTROPHILS # (AUTO) 3.8 K/uL (1.8-7.7); RED BLOOD CELL COUNT(AUTO) 5.62 MIL/uL (4.2-6.2); RED CELL DISTRIBUTION WIDTH 12.5 % (9.0-15.0); WHITE BLOOD COUNT (AUTO) 7.6 K/uL (4.8-10.8)
[2018-05-15 15:31] LABS: PLATELET COUNT (AUTO) 200 K/uL (130-430)
[2018-05-15 15:37] LABS: INR 1.2 (0.8-1.2); PROTHROMBIN TIME 12.1 SECS (9.5-12.5)
[2018-05-15 15:43] LABS: ANION GAP 7 (5-15); CALCIUM 8.8 mg/dL (8.4-11.0); CHLORIDE 107 mmol/L (98-107); CREATININE 0.61 mg/dL (0.55-1.30); GLUCOSE 101 mg/dL (70-99); POTASSIUM 3.8 mmol/L (3.5-5.1); SODIUM SERUM 142 mmol/L (136-145); UREA NITROGEN, BLOOD 17 mg/dL (8-21)
[2018-05-15 15:44] LABS: ALANINE AMINOTRANSFERASE 24 U/L (12-78); ALBUMIN 3.4 g/dL (3.4-4.8); AMYLASE 50 U/L (0-100); ASPARTATE AMINOTRANSFERASE 17 U/L (10-37); LIPASE 132 U/L (73-393); TOTAL BILIRUBIN 0.9 mg/dL (0.0-1.0)
[2018-05-15 15:56] LABS: BLOOD, URINE NEGATIVE (NEGATIVE); CLARITY/URINE CLEAR (CLEAR); COLOR,URINE AMBER (YELLOW); GLUCOSE,URINE TRACE (NEGATIVE); KETONES,URINE 1+ (NEGATIVE); LEUKOCYTE ESTERASE ,URINE NEGATIVE (NEGATIVE); PH,URINE 6.5 (5.0-8.0); PROTEIN URINE 2+ (NEGATIVE)
[2018-05-15 16:06] LABS: BILIRUBIN,URINE NEGATIVE (NEGATIVE); NITRITE, URINE NEGATIVE (NEGATIVE)
[2018-05-15 16:07] LABS: BACTERIA,URINE FEW /HPF (None Seen); RBC,URINE NONE SEEN /HPF (0-3); WBC,URINE 0-3 /HPF (0-3)
[2018-05-15 16:08] LABS: MUCUS,URINE 3+ /LPF (None Seen)
[2018-05-15 16:40] VITALS: BP_SYST 116
== END 2018-05-15 16:40 | disposition home or self-care (01) ==
LOC: SED 13:23
DX: S29.011A Strain of muscle and tendon of front wall of thorax, initial encounter (principal); I48.91 Unspecified atrial fibrillation; M79.7 Fibromyalgia; I10 Essential (primary) hypertension; Z85.038 Personal history of other malignant neoplasm of large intestine; Z85.41 Personal history of malignant neoplasm of cervix uteri; Z90.710 Acquired absence of both cervix and uterus; Z79.899 Other long term (current) drug therapy; X58.XXXA Exposure to other specified factors, initial encounter; Y93.89 Activity, other specified; Y92.89 Other specified places as the place of occurrence of the external cause; Y99.8 Other external cause status
CPT/HCPCS: 36415; 71045; 80053; 81000; 82150; 82550; 83605; 83690; 84484; 85025; 85610; 85730; 87040; 93005; 96372; 99284; J1885; J7030

== ENCOUNTER 2018-08-11 08:54 | Emergency (ER) | payer BC ==
[~2018-08-11] VITALS: Ht 167.6 cm; Wt 86.2 kg
[2018-08-11 08:59] VITALS: BP_SYST 136
--- NOTE | 2018-08-11 09:08 | NUR ---
Patient to ER bed 4 to gown for evaluation. Side rails up. Report given to Mandeep SWANSON.
--- NOTE | 2018-08-11 09:09 | NUR ---
Pt is here for c/o left side pain radiating flank since yesterday morning, nausea, denied vomiting, denied pain upon urination, afebrile. Per pt, pt took Morphine and [place] last night for pain, but does not help, pain is 8-9/10. VSS, pt is placed on monitor. Will continue to monitor.
[2018-08-11] MEDS ORDERED: NACL 0.9% 1,000 ML IV ONE (09:16)
[2018-08-11] MEDS ORDERED: MORPHINE 4 MG/ML INJ. SYRINGE IVP ONE (09:30)
[2018-08-11] MEDS ORDERED: ONDANSETRON HCL 4 MG/2 ML VIAL IVP ONE (09:30)
--- NOTE | 2018-08-11 09:30 | NUR ---
Dr. Reveles @ bedside for examination.
--- NOTE | 2018-08-11 09:45 | NUR ---
Pt taken to x ray with tech, no acute distress noted.
[2018-08-11 10:18] LABS: BASOPHILS % (AUTO) 0.7 % (0.0-2.0); EOSINOPHILS # (AUTO) 0.1 K/uL (0.0-0.4); EOSINOPHILS % (AUTO) 1.8 % (0.0-4.0); HEMATOCRIT 46.1 % (36-48); HEMOGLOBIN 15.5 g/dL (12.0-16.0); LYMPHOCYTES % (AUTO) 40.8 % (20.5-51.5); MEAN CORPUSCULAR HEMOGLOBIN 30 pg (27-31); MEAN CORPUSCULAR HGB CONC 34 % (32-36); MEAN CORPUSCULAR VOLUME 90 fL (79.0-98.0); MONOCYTES # (AUTO) 0.5 K/uL (0.0-1.0); MONOCYTES % (AUTO) 6.9 % (1.7-9.3); NEUTROPHILS # (AUTO) 3.6 K/uL (1.8-7.7); NEUTROPHILS % (AUTO) 49.8 % (40.0-70.0); PLATELET COUNT (AUTO) 184 K/uL (130-430); RED BLOOD CELL COUNT(AUTO) 5.14 MIL/uL (4.2-6.2); RED CELL DISTRIBUTION WIDTH 14.5 % (9.0-15.0); WHITE BLOOD COUNT (AUTO) 7.3 K/uL (4.8-10.8)
[2018-08-11 10:36] LABS: ANION GAP 9 (5-15); CALCIUM 9.1 mg/dL (8.4-11.0); CHLORIDE 107 mmol/L (98-107); CREATININE 0.43 mg/dL (0.55-1.30); POTASSIUM 3.4 mmol/L (3.5-5.1); SODIUM SERUM 142 mmol/L (136-145); UREA NITROGEN, BLOOD 14 mg/dL (8-21)
[2018-08-11 10:38] LABS: PROTHROMBIN TIME 10.4 SECS (9.5-12.5)
[2018-08-11 10:39] LABS: GLUCOSE 113 mg/dL (70-99)
[2018-08-11 10:39] LABS: BILIRUBIN,URINE NEGATIVE (NEGATIVE); BLOOD, URINE NEGATIVE (NEGATIVE); CLARITY/URINE CLEAR (CLEAR); COLOR,URINE YELLOW (YELLOW); GLUCOSE,URINE NEGATIVE (NEGATIVE); KETONES,URINE NEGATIVE (NEGATIVE); LEUKOCYTE ESTERASE ,URINE NEGATIVE (NEGATIVE); NITRITE, URINE NEGATIVE (NEGATIVE); PH,URINE 7.5 (5.0-8.0); PROTEIN URINE NEGATIVE (NEGATIVE); UROBILINOGEN,URINE 0.2 (0.2-1.0)
[2018-08-11 10:41] LABS: ALANINE AMINOTRANSFERASE 36 U/L (12-78); ALBUMIN 3.3 g/dL (3.4-4.8); ASPARTATE AMINOTRANSFERASE 21 U/L (10-37); TOTAL BILIRUBIN 0.7 mg/dL (0.0-1.0)
[2018-08-11] MEDS ORDERED: KETOROLAC TROMETHAMINE 30 MG VIAL IVP ONE (11:15)
[2018-08-11] MEDS ORDERED: LORazepam 2 MG/ML VIAL (FOR ER USE) IVP ONE (11:15)
--- NOTE | 2018-08-11 11:45 | NUR ---
Patient sleeping @ this time. No signs of acute distress noted.
[2018-08-11 13:10] VITALS: BP_SYST 131
--- NOTE | 2018-08-11 13:10 | NUR ---
Patient given written and verbal discharge instructions and verbalizes understanding. ER MD discussed with patient the results and treatment provided. Patient in stable condition. ID arm band removed. IV catheter removed intact and dressing applied, no active bleeding. Rx of tramadol, motrin, lactulose, and robaxin given. Patient educated on pain management and to follow up with PMD. Pain Scale 7/10. Opportunity for questions provided and answered. Medication side effect fact sheet provided.
== END 2018-08-11 13:10 | disposition home or self-care (01) ==
LOC: SED 08:54
DX: S39.011A Strain of muscle, fascia and tendon of abdomen, initial encounter (principal); I10 Essential (primary) hypertension; I48.91 Unspecified atrial fibrillation; M79.7 Fibromyalgia; Z85.038 Personal history of other malignant neoplasm of large intestine; Z85.41 Personal history of malignant neoplasm of cervix uteri; X58.XXXA Exposure to other specified factors, initial encounter; Y93.89 Activity, other specified; Y92.89 Other specified places as the place of occurrence of the external cause; Y99.8 Other external cause status
CPT/HCPCS: 36415; 74176; 80053; 81003; 85025; 85610; 85730; 87040; 96374; 96375; 99284; J1885; J2060; J2270; J2405; J7030

== ENCOUNTER 2018-09-21 15:55 | Emergency (ER) | payer BC ==
[~2018-09-21] VITALS: Ht 167.6 cm; Wt 90.7 kg
[2018-09-21 16:11] VITALS: BP_SYST 147
--- NOTE | 2018-09-21 16:11 | NUR ---
Patient to ER bed 4 to gown for evaluation. Side rails up. Report given to KIKI Quintana.
--- NOTE | 2018-09-21 16:12 | NUR ---
Patient is awake, alert, and oriented x4. Patient is complaining of chronic back pain becoming progressivley worse for the past 4-6 weeks. Patient reports throbbing sacral pain shooting down her right leg 10/10. Patient reports having an appointment with her pain management MD on October 04.
[2018-09-21] MEDS ORDERED: fentaNYL CITRATE/PF 100 MCG/2 ML AMP IM ONE (16:30)
--- NOTE | 2018-09-21 16:45 | NUR ---
ER Dr. Flores at bedside examining patient.
--- NOTE | 2018-09-21 16:55 | NUR ---
Patient transported to radiology via wheelchair, accompanied by field service technician.
--- NOTE | 2018-09-21 17:03 | NUR ---
Returned from radiology, back to [facility].
[2018-09-21] MEDS ORDERED: MORPHINE 4 MG/ML INJ. SYRINGE IVP ONE (17:15)
[2018-09-21] MEDS ORDERED: ONDANSETRON HCL 4 MG/2 ML VIAL IVP ONE (17:15)
--- NOTE | 2018-09-21 17:51 | NUR ---
4 unsuccessful IV attempts made to left AC and hand. Patient tolerated well.
--- NOTE | 2018-09-21 19:30 | NUR ---
Patient given written and verbal discharge instructions and verbalizes understanding. ER MD discussed with patient the results and treatment provided. Patient in stable condition. ID arm band removed. Rx of Keflex,Hydrocortisone and Benadryl given. Patient educated on pain management and to follow up with PMD. Pain Scale 2/10 tolerable for patient. Opportunity for questions provided and answered. Medication side effect fact sheet provided.
[2018-09-21 19:35] VITALS: BP_SYST 142
== END 2018-09-21 19:35 | disposition home or self-care (01) ==
LOC: SED 15:55
DX: G89.29 Other chronic pain (principal); M54.5 Low back pain; I10 Essential (primary) hypertension; M79.7 Fibromyalgia; I48.91 Unspecified atrial fibrillation; Z90.710 Acquired absence of both cervix and uterus; Z85.41 Personal history of malignant neoplasm of cervix uteri; Z85.038 Personal history of other malignant neoplasm of large intestine
CPT/HCPCS: 72131; 96372; 96374; 96375; 99284; J2270; J2405; J3010

== ENCOUNTER 2019-04-14 11:06 | Emergency (ER) | payer BC ==
[~2019-04-14] VITALS: Ht 167.6 cm; Wt 86.2 kg
[2019-04-14 11:15] VITALS: BP_SYST 136
[2019-04-14] MEDS ORDERED: KETOROLAC TROMETHAMINE 15 MG VIAL IM ONE (13:45)
[2019-04-14 14:23] VITALS: BP_SYST 132
[2019-04-14 14:33] LABS: BARBITURATE, URINE NEGATIVE (NEG <=200); BENZODIAZEPINE, URINE NEGATIVE (NEG <=150); CANNABINOID, URINE NEGATIVE (NEG <=50); COCAINE, URINE NEGATIVE (NEG <=150); METHAMPHETAMINES SCREEN,URINE NEGATIVE (NEG <=500); OPIATE, URINE POSITIVE (NEG <=100); PHENCYCLIDINE SCREEN,URINE NEGATIVE (NEG <=25); UR TRICYCLIC ANTIDEPRESSANTS NEGATIVE (NEG <=300); URINE AMPHETAMINE NEGATIVE (NEG <=500); URINE METHADONE NEGATIVE (NEG <=200); URINE OXYCODONE SCREEN NEGATIVE (NEG <=100); URINE PROPOXYPHENE SCREEN NEGATIVE (NEG <=300)
== END 2019-04-14 14:25 | disposition home or self-care (01) ==
LOC: SED 11:06
DX: M54.5 Low back pain (principal); I48.91 Unspecified atrial fibrillation; Z90.710 Acquired absence of both cervix and uterus
CPT/HCPCS: 72110; 80307; 81002; 96372; 99284; J1885

== ENCOUNTER 2020-04-12 10:27 | Inpatient (IN) | payer BC, SELFPAY ==
[~2020-04-12] VITALS: Ht 167.6 cm; Wt 81.6 kg
[2020-04-12 10:40] VITALS: BP_SYST 106
[2020-04-12] MEDS ORDERED: DILTIAZEM HCL 25 MG/5 ML VIAL ONE (11:35)
[2020-04-12] MEDS ORDERED: DILTIAZEM HCL 25 MG/5 ML VIAL IVP ONE ×2 (11:45→12:45)
[2020-04-12 12:09] LABS: BASOPHILS # (AUTO) 0.1 K/uL (0.0-0.2); BASOPHILS % (AUTO) 1.2 % (0.0-2.0); EOSINOPHILS % (AUTO) 0.1 % (0.0-4.0); HEMATOCRIT 41.2 % (36-48); HEMOGLOBIN 13.9 g/dL (12.0-16.0); LYMPHOCYTES # (AUTO) 1.6 K/uL (1.0-5.5); LYMPHOCYTES % (AUTO) 15.8 % (20.5-51.5); MEAN CORPUSCULAR HEMOGLOBIN 30 pg (27-31); MEAN CORPUSCULAR HGB CONC 34 % (32-36); MEAN CORPUSCULAR VOLUME 89 fL (79.0-98.0); MONOCYTES # (AUTO) 0.4 K/uL (0.0-1.0); MONOCYTES % (AUTO) 4.3 % (1.7-9.3); NEUTROPHILS # (AUTO) 8.1 K/uL (1.8-7.7); NEUTROPHILS % (AUTO) 78.6 % (40.0-70.0); PLATELET COUNT (AUTO) 116 K/uL (130-430); RED CELL DISTRIBUTION WIDTH 13.2 % (9.0-15.0); WHITE BLOOD COUNT (AUTO) 10.3 K/uL (4.8-10.8)
[2020-04-12 12:14] LABS: ANION GAP 11 (5-15); CALCIUM 7.4 mg/dL (8.4-11.0); CHLORIDE 103 mmol/L (98-107); CREATININE 0.97 mg/dL (0.55-1.30); GLUCOSE 160 mg/dL (70-99); SODIUM SERUM 141 mmol/L (136-145); UREA NITROGEN, BLOOD 17 mg/dL (8-21)
[2020-04-12 12:18] LABS: INR 1.1 (0.8-1.2); PROTHROMBIN TIME 11.7 SECS (9.5-12.5)
[2020-04-12 12:19] LABS: ALANINE AMINOTRANSFERASE 19 U/L (12-78); ALBUMIN 2.5 g/dL (3.4-4.8); ASPARTATE AMINOTRANSFERASE 31 U/L (10-37); TOTAL BILIRUBIN 0.8 mg/dL (0.0-1.0)
[2020-04-12 13:02] LABS: BILIRUBIN,URINE 1+ (NEGATIVE); BLOOD, URINE NEGATIVE (NEGATIVE); CLARITY/URINE SL CLOUDY (CLEAR); COLOR,URINE YELLOW (YELLOW); GLUCOSE,URINE NEGATIVE (NEGATIVE); KETONES,URINE NEGATIVE (NEGATIVE); LEUKOCYTE ESTERASE ,URINE TRACE (NEGATIVE); NITRITE, URINE NEGATIVE (NEGATIVE); PH,URINE 5.5 (5.0-8.0); PROTEIN URINE 1+ (NEGATIVE)
[2020-04-12 13:28] LABS: RBC,URINE 0-3 /HPF (0-3)
[2020-04-12 13:30] LABS: BACTERIA,URINE FEW /HPF (None Seen)
[2020-04-12 13:31] LABS: HYALINE CASTS, URINE 0-10 /LPF (None Seen)
[2020-04-12] MEDS ORDERED: POTASSIUM CHLORIDE 10 MEQ TAB.PRT.SR PO ONE (14:30)
[2020-04-12] MEDS ORDERED: POTASSIUM CHLORIDE 20 MEQ TAB.PRT.SR ONE (15:22)
[2020-04-12] MEDS ORDERED: POTASSIUM CHLORIDE 10 MEQ TAB.PRT.SR ONE (15:23)
[2020-04-12] MEDS: DEXAMETHASONE SOD PHOSPHATE 10 MG/ML VIAL IVP SCH (15:45)
[2020-04-12] MEDS ORDERED: ENOXAPARIN SODIUM 40 MG/0.4 ML SYRINGE SUBCUT SCH (15:45)
[2020-04-12] MEDS ORDERED: IPRATROPIUM BROM 0.5 MG/2.5 ML VIAL.NEB (ATROVENT) INH PRN (15:45)
[2020-04-12] MEDS: AZITHROMYCIN 500 MG in NS 250 ML IV SCH (16:00)
[2020-04-12] MEDS ORDERED: ALBUTEROL MDI INHALATION 8 GM INH INH PRN (16:00)
[2020-04-12] MEDS: cefTRIAXone 1 GM in D5W 50 ML IV SCH (17:38)
[2020-04-12] MEDS ORDERED: WARFARIN SODIUM 2.5 MG TABLET PO SCH (18:00)
[2020-04-12 19:00] VITALS: BP_SYST 109
[2020-04-12 20:00] VITALS: BP_SYST 103
[2020-04-12 21:00] VITALS: BP_SYST 109
[2020-04-12] MEDS: SOTALOL HCL 80 MG TABLET PO SCH (21:00)
[2020-04-12] MEDS: DULoxetine HCL 30 MG CAPSULE.DR (CYMBALTA) PO SCH (21:00)
[2020-04-12] MEDS: ATORVASTATIN 20 MG TABLET PO SCH (21:00)
[2020-04-12] MEDS: PREGABALIN 75 MG CAPSULE (LYRICA) PO SCH (21:00)
[2020-04-12] MEDS ORDERED: *LOVENOX 1MG/KG Q12H/PHARMACY XX ONE (21:15)
[2020-04-12] MEDS ORDERED: ENOXAPARIN SODIUM 40 MG/0.4 ML SYRINGE SUBCUT ONE (21:30)
[2020-04-12 22:00] VITALS: BP_SYST 98
[2020-04-12 23:00] VITALS: BP_SYST 85
[2020-04-12] MEDS: ALBUTEROL MDI INHALATION 8 GM INH INH SCH (23:04)
[2020-04-13] VITALS (8 sets, daily range): BP systolic 85–109
[2020-04-13] MEDS: ALBUTEROL MDI INHALATION 8 GM INH INH SCH ×4 (03:06→20:36)
[2020-04-13 06:50] LABS: BASOPHILS % (AUTO) 0.3 % (0.0-2.0); HEMATOCRIT 38.1 % (36-48); HEMOGLOBIN 12.9 g/dL (12.0-16.0); MEAN CORPUSCULAR HEMOGLOBIN 30 pg (27-31); MEAN CORPUSCULAR HGB CONC 34 % (32-36); MEAN CORPUSCULAR VOLUME 89 fL (79.0-98.0); MONOCYTES # (AUTO) 0.2 K/uL (0.0-1.0); NEUTROPHILS # (AUTO) 3.8 K/uL (1.8-7.7); NEUTROPHILS % (AUTO) 76.7 % (40.0-70.0); PLATELET COUNT (AUTO) 127 K/uL (130-430); RED BLOOD CELL COUNT(AUTO) 4.29 MIL/uL (4.2-6.2); RED CELL DISTRIBUTION WIDTH 13.3 % (9.0-15.0)
[2020-04-13 08:20] LABS: ALANINE AMINOTRANSFERASE 17 U/L (12-78); ALBUMIN 2.2 g/dL (3.4-4.8); ANION GAP 5 (5-15); ASPARTATE AMINOTRANSFERASE 30 U/L (10-37); CALCIUM 8.1 mg/dL (8.4-11.0); CHLORIDE 103 mmol/L (98-107); GLUCOSE 170 mg/dL (70-99); POTASSIUM 4.8 mmol/L (3.5-5.1); SODIUM SERUM 139 mmol/L (136-145); TOTAL BILIRUBIN 0.6 mg/dL (0.0-1.0); UREA NITROGEN, BLOOD 20 mg/dL (8-21)
[2020-04-13 08:56] LABS: CREATININE 0.67 mg/dL (0.55-1.30)
[2020-04-13] MEDS: SOTALOL HCL 80 MG TABLET PO SCH ×2 (09:00→20:56)
[2020-04-13] MEDS: DEXAMETHASONE SOD PHOSPHATE 10 MG/ML VIAL IVP SCH (09:58)
[2020-04-13] MEDS: DULoxetine HCL 30 MG CAPSULE.DR (CYMBALTA) PO SCH ×2 (09:59→20:57)
[2020-04-13] MEDS: ENOXAPARIN SODIUM 80 MG/0.8 ML SYRINGE SUBCUT SCH ×2 (10:01→21:00)
[2020-04-13] MEDS: PREGABALIN 75 MG CAPSULE (LYRICA) PO SCH ×2 (11:30→20:58)
[2020-04-13] MEDS ORDERED: BENZOCAINE/MENTHOL 1 EACH LOZENGE MM PRN (15:15)
[2020-04-13] MEDS: AZITHROMYCIN 500 MG in NS 250 ML IV SCH (16:37)
[2020-04-13] MEDS: cefTRIAXone 1 GM in D5W 50 ML IV SCH (17:55)
[2020-04-13] MEDS: IPRATROPIUM BROM 0.5 MG/2.5 ML VIAL.NEB (ATROVENT) INH SCH ×4 (20:25→23:09)
[2020-04-13] MEDS: ATORVASTATIN 20 MG TABLET PO SCH (20:58)
[2020-04-14] MEDS: IPRATROPIUM BROM 0.5 MG/2.5 ML VIAL.NEB (ATROVENT) INH SCH ×3 (01:00→19:00)
[2020-04-14] MEDS: ALBUTEROL MDI INHALATION 8 GM INH INH SCH ×4 (01:00→20:20)
[2020-04-14] MEDS: PREGABALIN 75 MG CAPSULE (LYRICA) PO SCH ×2 (09:00→21:39)
[2020-04-14] MEDS: DEXAMETHASONE SOD PHOSPHATE 10 MG/ML VIAL IVP SCH (09:53)
[2020-04-14] MEDS: SOTALOL HCL 80 MG TABLET PO SCH ×2 (09:55→20:39)
[2020-04-14] MEDS: DULoxetine HCL 30 MG CAPSULE.DR (CYMBALTA) PO SCH ×2 (09:55→20:39)
[2020-04-14] MEDS: ENOXAPARIN SODIUM 80 MG/0.8 ML SYRINGE SUBCUT SCH ×2 (09:56→20:43)
[2020-04-14 10:36] LABS: BASOPHILS % (AUTO) 0.2 % (0.0-2.0); HEMATOCRIT 40.9 % (36-48); HEMOGLOBIN 13.5 g/dL (12.0-16.0); LYMPHOCYTES # (AUTO) 0.8 K/uL (1.0-5.5); LYMPHOCYTES % (AUTO) 14.8 % (20.5-51.5); MEAN CORPUSCULAR HEMOGLOBIN 29 pg (27-31); MEAN CORPUSCULAR HGB CONC 33 % (32-36); MEAN CORPUSCULAR VOLUME 89 fL (79.0-98.0); MONOCYTES # (AUTO) 0.3 K/uL (0.0-1.0); MONOCYTES % (AUTO) 5.3 % (1.7-9.3); NEUTROPHILS # (AUTO) 4.4 K/uL (1.8-7.7); NEUTROPHILS % (AUTO) 79.7 % (40.0-70.0); PLATELET COUNT (AUTO) 183 K/uL (130-430); RED BLOOD CELL COUNT(AUTO) 4.59 MIL/uL (4.2-6.2); WHITE BLOOD COUNT (AUTO) 5.5 K/uL (4.8-10.8)
[2020-04-14 11:36] LABS: ANION GAP 8 (5-15); CALCIUM 8.4 mg/dL (8.4-11.0); CHLORIDE 103 mmol/L (98-107); GLUCOSE 212 mg/dL (70-99); POTASSIUM 3.4 mmol/L (3.5-5.1); SODIUM SERUM 141 mmol/L (136-145); UREA NITROGEN, BLOOD 25 mg/dL (8-21)
[2020-04-14 11:42] LABS: ALANINE AMINOTRANSFERASE 26 U/L (12-78); ALBUMIN 2.3 g/dL (3.4-4.8); ASPARTATE AMINOTRANSFERASE 29 U/L (10-37); TOTAL BILIRUBIN 0.5 mg/dL (0.0-1.0)
[2020-04-14] MEDS: AZITHROMYCIN 500 MG in NS 250 ML IV SCH (16:21)
[2020-04-14] MEDS: cefTRIAXone 1 GM in D5W 50 ML IV SCH (17:12)
[2020-04-14] MEDS: ATORVASTATIN 20 MG TABLET PO SCH (20:43)
[2020-04-15] MEDS: IPRATROPIUM BROM 0.5 MG/2.5 ML VIAL.NEB (ATROVENT) INH SCH ×3 (01:00→19:00)
[2020-04-15] MEDS: ALBUTEROL MDI INHALATION 8 GM INH INH SCH ×2 (02:20→20:36)
[2020-04-15 07:11] LABS: ALANINE AMINOTRANSFERASE 25 U/L (12-78); ALBUMIN 2.4 g/dL (3.4-4.8); ANION GAP 4 (5-15); ASPARTATE AMINOTRANSFERASE 29 U/L (10-37); CALCIUM 7.9 mg/dL (8.4-11.0); CHLORIDE 104 mmol/L (98-107); CREATININE 0.68 mg/dL (0.55-1.30); GLUCOSE 171 mg/dL (70-99); POTASSIUM 3.4 mmol/L (3.5-5.1); SODIUM SERUM 141 mmol/L (136-145); TOTAL BILIRUBIN 0.6 mg/dL (0.0-1.0); UREA NITROGEN, BLOOD 23 mg/dL (8-21)
[2020-04-15] MEDS: DEXAMETHASONE SOD PHOSPHATE 10 MG/ML VIAL IVP SCH (09:33)
[2020-04-15] MEDS: DULoxetine HCL 30 MG CAPSULE.DR (CYMBALTA) PO SCH ×2 (09:34→20:15)
[2020-04-15] MEDS: SOTALOL HCL 80 MG TABLET PO SCH ×2 (09:34→20:18)
[2020-04-15] MEDS: ENOXAPARIN SODIUM 80 MG/0.8 ML SYRINGE SUBCUT SCH ×2 (09:36→20:17)
[2020-04-15] MEDS: PREGABALIN 75 MG CAPSULE (LYRICA) PO SCH ×2 (09:57→20:15)
[2020-04-15] MEDS ORDERED: AMIODARONE HCL 200 MG TABLET PO ONE (10:00)
[2020-04-15] MEDS: AZITHROMYCIN 500 MG in NS 250 ML IV SCH (16:34)
[2020-04-15] MEDS: cefTRIAXone 1 GM in D5W 50 ML IV SCH (17:00)
[2020-04-15 19:00] VITALS: BP_SYST 124
[2020-04-15 20:00] VITALS: BP_SYST 111
[2020-04-15] MEDS: ATORVASTATIN 20 MG TABLET PO SCH (20:15)
[2020-04-15 21:00] VITALS: BP_SYST 124
[2020-04-15 22:00] VITALS: BP_SYST 109
[2020-04-15 23:00] VITALS: BP_SYST 125
[2020-04-16] VITALS (10 sets, daily range): BP systolic 110–151
[2020-04-16] MEDS: IPRATROPIUM BROM 0.5 MG/2.5 ML VIAL.NEB (ATROVENT) INH SCH ×4 (01:00→19:00)
[2020-04-16] MEDS: ALBUTEROL MDI INHALATION 8 GM INH INH SCH ×3 (01:14→15:35)
[2020-04-16] MEDS: DULoxetine HCL 30 MG CAPSULE.DR (CYMBALTA) PO SCH ×2 (08:12→21:00)
[2020-04-16] MEDS: SOTALOL HCL 80 MG TABLET PO SCH ×2 (08:12→21:00)
[2020-04-16] MEDS: DEXAMETHASONE SOD PHOSPHATE 10 MG/ML VIAL IVP SCH (08:12)
[2020-04-16] MEDS: ENOXAPARIN SODIUM 80 MG/0.8 ML SYRINGE SUBCUT SCH ×2 (08:13→21:00)
[2020-04-16] MEDS ORDERED: PREGABALIN 75 MG CAPSULE (LYRICA) ONE (08:20)
[2020-04-16 08:36] LABS: ALANINE AMINOTRANSFERASE 46 U/L (12-78); ALBUMIN 2.5 g/dL (3.4-4.8); ANION GAP 7 (5-15); CALCIUM 7.8 mg/dL (8.4-11.0); CHLORIDE 104 mmol/L (98-107); GLUCOSE 140 mg/dL (70-99); POTASSIUM 3.4 mmol/L (3.5-5.1); SODIUM SERUM 138 mmol/L (136-145); TOTAL BILIRUBIN 0.7 mg/dL (0.0-1.0); UREA NITROGEN, BLOOD 20 mg/dL (8-21)
[2020-04-16] MEDS: PREGABALIN 75 MG CAPSULE (LYRICA) PO SCH ×2 (08:44→21:00)
[2020-04-16 09:04] LABS: BASOPHILS % (AUTO) 0.3 % (0.0-2.0); HEMOGLOBIN 13.4 g/dL (12.0-16.0); LYMPHOCYTES % (AUTO) 19.3 % (20.5-51.5); MEAN CORPUSCULAR HEMOGLOBIN 30 pg (27-31); MEAN CORPUSCULAR HGB CONC 34 % (32-36); MEAN CORPUSCULAR VOLUME 88 fL (79.0-98.0); MONOCYTES # (AUTO) 0.5 K/uL (0.0-1.0); MONOCYTES % (AUTO) 9.4 % (1.7-9.3); NEUTROPHILS # (AUTO) 3.6 K/uL (1.8-7.7); PLATELET COUNT (AUTO) 199 K/uL (130-430); RED BLOOD CELL COUNT(AUTO) 4.53 MIL/uL (4.2-6.2); RED CELL DISTRIBUTION WIDTH 13.2 % (9.0-15.0); WHITE BLOOD COUNT (AUTO) 5.1 K/uL (4.8-10.8)
[2020-04-16 09:52] LABS: ASPARTATE AMINOTRANSFERASE 58 U/L (10-37)
[2020-04-16] MEDS: AZITHROMYCIN 500 MG in NS 250 ML IV SCH (15:36)
[2020-04-16] MEDS: cefTRIAXone 1 GM in D5W 50 ML IV SCH (21:00)
[2020-04-16] MEDS: ATORVASTATIN 20 MG TABLET PO SCH (21:00)
[2020-04-17] VITALS: BP_SYST 121
[2020-04-17] MEDS: ALBUTEROL MDI INHALATION 8 GM INH INH SCH ×4 (01:00→20:21)
[2020-04-17] MEDS ORDERED: POTASSIUM CHLORIDE 20 MEQ TAB.PRT.SR PO ONE ×2 (01:00→05:30)
[2020-04-17] MEDS ORDERED: POTASSIUM CHLORIDE 20 MEQ TAB.PRT.SR ONE (05:29)
[2020-04-17 08:00] VITALS: BP_SYST 113
[2020-04-17] MEDS: ENOXAPARIN SODIUM 80 MG/0.8 ML SYRINGE SUBCUT SCH ×2 (08:22→21:00)
[2020-04-17] MEDS: DULoxetine HCL 30 MG CAPSULE.DR (CYMBALTA) PO SCH ×2 (08:23→21:00)
[2020-04-17] MEDS: PREGABALIN 75 MG CAPSULE (LYRICA) PO SCH ×2 (08:23→21:00)
[2020-04-17] MEDS: DEXAMETHASONE SOD PHOSPHATE 10 MG/ML VIAL IVP SCH (08:23)
[2020-04-17] MEDS: SOTALOL HCL 80 MG TABLET PO SCH ×2 (08:39→21:00)
[2020-04-17 08:56] LABS: ALANINE AMINOTRANSFERASE 74 U/L (12-78); ALBUMIN 2.6 g/dL (3.4-4.8); ANION GAP 9 (5-15); ASPARTATE AMINOTRANSFERASE 72 U/L (10-37); CALCIUM 7.9 mg/dL (8.4-11.0); CHLORIDE 105 mmol/L (98-107); CREATININE 0.56 mg/dL (0.55-1.30); GLUCOSE 102 mg/dL (70-99); POTASSIUM 3.5 mmol/L (3.5-5.1); SODIUM SERUM 141 mmol/L (136-145); TOTAL BILIRUBIN 0.6 mg/dL (0.0-1.0); UREA NITROGEN, BLOOD 20 mg/dL (8-21)
[2020-04-17 12:52] VITALS: BP_SYST 123
[2020-04-17] MEDS ORDERED: PANTOPRAZOLE SODIUM 40 MG TAB PO ONE (15:00)
[2020-04-17 16:48] VITALS: BP_SYST 125
[2020-04-17] MEDS: cefTRIAXone 1 GM in D5W 50 ML IV SCH (16:55)
[2020-04-17] MEDS: IPRATROPIUM BROM 0.5 MG/2.5 ML VIAL.NEB (ATROVENT) INH SCH (19:00)
[2020-04-17] MEDS: PANTOPRAZOLE SODIUM 40 MG TAB PO SCH (21:00)
[2020-04-17] MEDS: ATORVASTATIN 20 MG TABLET PO SCH (21:00)
[2020-04-18 00:02] VITALS: BP_SYST 130
[2020-04-18] MEDS: IPRATROPIUM BROM 0.5 MG/2.5 ML VIAL.NEB (ATROVENT) INH SCH ×2 (01:00→07:00)
[2020-04-18] MEDS: ALBUTEROL MDI INHALATION 8 GM INH INH SCH ×4 (02:00→20:01)
[2020-04-18 03:53] VITALS: BP_SYST 126
[2020-04-18 06:57] LABS: BASOPHILS % (AUTO) 0.7 % (0.0-2.0); HEMATOCRIT 40.6 % (36-48); HEMOGLOBIN 13.7 g/dL (12.0-16.0); LYMPHOCYTES # (AUTO) 0.9 K/uL (1.0-5.5); LYMPHOCYTES % (AUTO) 23.5 % (20.5-51.5); MEAN CORPUSCULAR HEMOGLOBIN 30 pg (27-31); MEAN CORPUSCULAR HGB CONC 34 % (32-36); MEAN CORPUSCULAR VOLUME 88 fL (79.0-98.0); MONOCYTES # (AUTO) 0.4 K/uL (0.0-1.0); MONOCYTES % (AUTO) 9.3 % (1.7-9.3); NEUTROPHILS # (AUTO) 2.6 K/uL (1.8-7.7); NEUTROPHILS % (AUTO) 66.5 % (40.0-70.0); PLATELET COUNT (AUTO) 182 K/uL (130-430); RED CELL DISTRIBUTION WIDTH 13.1 % (9.0-15.0); WHITE BLOOD COUNT (AUTO) 3.9 K/uL (4.8-10.8)
[2020-04-18 07:20] LABS: ALANINE AMINOTRANSFERASE 61 U/L (12-78); ALBUMIN 2.4 g/dL (3.4-4.8); ANION GAP 9 (5-15); CALCIUM 7.9 mg/dL (8.4-11.0); CHLORIDE 103 mmol/L (98-107); CREATININE 0.68 mg/dL (0.55-1.30); GLUCOSE 137 mg/dL (70-99); POTASSIUM 3.7 mmol/L (3.5-5.1); SODIUM SERUM 139 mmol/L (136-145); TOTAL BILIRUBIN 0.5 mg/dL (0.0-1.0); UREA NITROGEN, BLOOD 20 mg/dL (8-21)
[2020-04-18 08:00] VITALS: BP_SYST 116
[2020-04-18 08:33] LABS: ASPARTATE AMINOTRANSFERASE 34 U/L (10-37)
[2020-04-18] MEDS: SOTALOL HCL 80 MG TABLET PO SCH ×2 (09:03→21:00)
[2020-04-18] MEDS: DEXAMETHASONE SOD PHOSPHATE 10 MG/ML VIAL IVP SCH (09:03)
[2020-04-18] MEDS: PANTOPRAZOLE SODIUM 40 MG TAB PO SCH ×2 (09:04→20:31)
[2020-04-18] MEDS: PREGABALIN 75 MG CAPSULE (LYRICA) PO SCH ×2 (09:04→20:28)
[2020-04-18] MEDS: DULoxetine HCL 30 MG CAPSULE.DR (CYMBALTA) PO SCH ×2 (09:04→20:27)
[2020-04-18] MEDS: ENOXAPARIN SODIUM 80 MG/0.8 ML SYRINGE SUBCUT SCH ×2 (09:50→20:29)
[2020-04-18] MEDS ORDERED: DEC1 PO ×2 (11:09→11:12)
[2020-04-18] MEDS ORDERED: AMOX-426 PO (11:10)
[2020-04-18] MEDS ORDERED: ALBMDI INH (11:10)
[2020-04-18 12:00] VITALS: BP_SYST 183
[2020-04-18 16:00] VITALS: BP_SYST 183
[2020-04-18] MEDS: cefTRIAXone 1 GM in D5W 50 ML IV SCH (17:37)
[2020-04-18 20:00] VITALS: BP_SYST 140
[2020-04-18] MEDS: ATORVASTATIN 20 MG TABLET PO SCH ×2 (20:28→20:31)
[2020-04-19 00:15] VITALS: BP_SYST 134
[2020-04-19] MEDS: ALBUTEROL MDI INHALATION 8 GM INH INH SCH ×2 (03:22→06:40)
[2020-04-19 03:44] VITALS: BP_SYST 140
[2020-04-19 08:00] VITALS: BP_SYST 120
[2020-04-19] MEDS: PREGABALIN 75 MG CAPSULE (LYRICA) PO SCH (09:33)
[2020-04-19] MEDS: DEXAMETHASONE SOD PHOSPHATE 10 MG/ML VIAL IVP SCH (09:33)
[2020-04-19] MEDS: DULoxetine HCL 30 MG CAPSULE.DR (CYMBALTA) PO SCH (09:34)
[2020-04-19] MEDS: ENOXAPARIN SODIUM 80 MG/0.8 ML SYRINGE SUBCUT SCH (09:35)
[2020-04-19] MEDS: SOTALOL HCL 80 MG TABLET PO SCH (09:35)
[2020-04-19] MEDS: PANTOPRAZOLE SODIUM 40 MG TAB PO SCH (09:38)
[2020-04-19] MEDS ORDERED: traMADol HCL HCL 50 MG TABLET (ULTRAM) ONE (10:42)
[2020-04-19 11:53] VITALS: BP_SYST 120
[2020-04-19] MEDS ORDERED: traMADol HCL HCL 50 MG TABLET (ULTRAM) PO SCH (12:00)
== END 2020-04-19 13:55 | disposition home or self-care (01) | DRG 871 ==
LOC: SED 10:27 → SIC 15:06 → STU 04-16 18:20
PROVIDERS: ADMIT Internal Medicine Hospice and Palliative Medicine; ATTEND Internal Medicine Hospice and Palliative Medicine
PROC: 5A09357 Assistance with Respiratory Ventilation, Less than 24 Consecutive Hours, Continuous Positive Airway Pressure (ICD-10-PCS; 2020-04-13)
PROC: XW13325 Transfusion of Convalescent Plasma (Nonautologous) into Peripheral Vein, Percutaneous Approach, New Technology Group 5 (ICD-10-PCS; principal; 2020-04-14)
PROC: XW033E5 Introduction of Remdesivir Anti-infective into Peripheral Vein, Percutaneous Approach, New Technology Group 5 (ICD-10-PCS; 2020-04-14)
DX: A41.9 Sepsis, unspecified organism (principal); U07.1 COVID-19; J12.82 Pneumonia due to coronavirus disease 2019; J96.01 Acute respiratory failure with hypoxia; I48.0 Paroxysmal atrial fibrillation; E78.5 Hyperlipidemia, unspecified; M54.9 Dorsalgia, unspecified; M79.7 Fibromyalgia; G89.4 Chronic pain syndrome; E87.6 Hypokalemia; I10 Essential (primary) hypertension; Z90.710 Acquired absence of both cervix and uterus; Z79.01 Long term (current) use of anticoagulants; Z85.038 Personal history of other malignant neoplasm of large intestine; Z85.41 Personal history of malignant neoplasm of cervix uteri; Z85.42 Personal history of malignant neoplasm of other parts of uterus; Z90.49 Acquired absence of other specified parts of digestive tract; Z92.21 Personal history of antineoplastic chemotherapy; Z68.29 Body mass index [BMI] 29.0-29.9, adult
CPT/HCPCS: 36415; 36430; 71045; 80053; 81000-TC; 83880; 84484; 85025; 85610-TC; 85730-TC; 86886; 86900; 86901; 87081; 87086; 93005; 94640; 94760; 96374; 96375; 97110-GP; 97112-GP; 97116-GP; 97163; 97530-GP; 99291; J0456; J0696; J1100; J1650; J3490; J7040; J7050; J7060; P9017

== ENCOUNTER 2020-05-31 22:30 | Emergency (ER) | payer BC, SELFPAY ==
[~2020-05-31] VITALS: Ht 167.6 cm; Wt 81.6 kg
[~2020-05-31 22:30] MED LIST changes: +ALBMDI INH; +AMOX-426 PO; +DEC1 PO
[2020-05-31 22:31] VITALS: BP_SYST 110
--- NOTE | 2020-05-31 22:31 | NUR ---
Patient to ER bed 6 to gown for evaluation. Side rails up. Report given to Dennis.
--- NOTE | 2020-05-31 22:33 | NUR ---
ER at bedside examining patient.
--- NOTE | 2020-05-31 22:58 | NUR ---
Pt BIBA from home for lift assist. Pt found to be hypotensive in 80s. Received pt with 22g in right hand infusing NS. EMS gave Narcan x1. Pt awake but drowsy, some slurred speech, able to follow commands. Pt is resting comfortably in bed. 20g PIV in LAC placed x1 attempt. Pt tolerated well.
[2020-05-31 23:02] LABS: BASOPHILS % (AUTO) 0.2 % (0.0-2.0); EOSINOPHILS # (AUTO) 0.1 K/uL (0.0-0.4); EOSINOPHILS % (AUTO) 1.6 % (0.0-4.0); HEMATOCRIT 41.1 % (36-48); HEMOGLOBIN 13.6 g/dL (12.0-16.0); LYMPHOCYTES # (AUTO) 2.6 K/uL (1.0-5.5); LYMPHOCYTES % (AUTO) 35.4 % (20.5-51.5); MEAN CORPUSCULAR HEMOGLOBIN 30 pg (27-31); MEAN CORPUSCULAR HGB CONC 33 % (32-36); MEAN CORPUSCULAR VOLUME 91 fL (79.0-98.0); MONOCYTES # (AUTO) 0.7 K/uL (0.0-1.0); MONOCYTES % (AUTO) 10.1 % (1.7-9.3); NEUTROPHILS # (AUTO) 3.8 K/uL (1.8-7.7); NEUTROPHILS % (AUTO) 52.7 % (40.0-70.0); PLATELET COUNT (AUTO) 187 K/uL (130-430); RED BLOOD CELL COUNT(AUTO) 4.51 MIL/uL (4.2-6.2); RED CELL DISTRIBUTION WIDTH 14.5 % (9.0-15.0); WHITE BLOOD COUNT (AUTO) 7.2 K/uL (4.8-10.8)
[2020-05-31 23:04] LABS: BILIRUBIN,URINE 1+ (NEGATIVE); BLOOD, URINE NEGATIVE (NEGATIVE); CLARITY/URINE CLEAR (CLEAR); COLOR,URINE YELLOW (YELLOW); GLUCOSE,URINE NEGATIVE (NEGATIVE); KETONES,URINE TRACE (NEGATIVE); LEUKOCYTE ESTERASE ,URINE NEGATIVE (NEGATIVE); NITRITE, URINE NEGATIVE (NEGATIVE); PROTEIN URINE NEGATIVE (NEGATIVE); UROBILINOGEN,URINE 0.2 (0.2-1.0)
[2020-05-31 23:16] LABS: ANION GAP 5 (5-15); CALCIUM 8.3 mg/dL (8.4-11.0); CHLORIDE 105 mmol/L (98-107); GLUCOSE 150 mg/dL (70-99); POTASSIUM 3.4 mmol/L (3.5-5.1); SODIUM SERUM 139 mmol/L (136-145); UREA NITROGEN, BLOOD 17 mg/dL (8-21)
[2020-05-31 23:20] LABS: INR 1.1 (0.8-1.2)
[2020-05-31 23:28] LABS: ALANINE AMINOTRANSFERASE 28 U/L (12-78); ALBUMIN 3.2 g/dL (3.4-4.8); ASPARTATE AMINOTRANSFERASE 26 U/L (10-37); TOTAL BILIRUBIN 0.6 mg/dL (0.0-1.0)
[2020-05-31 23:29] LABS: ACETONE, SERUM NEGATIVE (NEGATIVE)
--- NOTE | 2020-06-01 00:08 | NUR ---
Dr. Allen at bedside- updating pt on results and POC.
[2020-06-01 00:26] LABS: BARBITURATE, URINE NEGATIVE (NEG <=200); BENZODIAZEPINE, URINE NEGATIVE (NEG <=150); CANNABINOID, URINE NEGATIVE (NEG <=50); COCAINE, URINE NEGATIVE (NEG <=150); METHAMPHETAMINES SCREEN,URINE NEGATIVE (NEG <=500); OPIATE, URINE POSITIVE (NEG <=100); PHENCYCLIDINE SCREEN,URINE NEGATIVE (NEG <=25); UR TRICYCLIC ANTIDEPRESSANTS POSITIVE (NEG <=300); URINE AMPHETAMINE NEGATIVE (NEG <=500); URINE METHADONE NEGATIVE (NEG <=200); URINE OXYCODONE SCREEN NEGATIVE (NEG <=100); URINE PROPOXYPHENE SCREEN NEGATIVE (NEG <=300)
--- NOTE | 2020-06-01 03:13 | NUR ---
Report given to Emanuel Loading Machine Operator with [facility].
[2020-06-01 03:26] VITALS: BP_SYST 129
--- NOTE | 2020-06-01 03:26 | NUR ---
Report given to Cherie SWANSON at [facility]. Accepting confirmed as Dr. Heart.
--- NOTE | 2020-06-01 03:26 | NUR ---
Patient to be transferred to [facility] due to higher level of care. Receiving facility has accepting physician and available space. ER physician has signed transfer form. Patient or responsible constitution party has agreed to transfer and signed form. Patient belongings inventoried and will be sent with patient. Copy of nursing notes, lab reports, EKG, Physicians Orders and X-rays to be sent with patient. Report called to Cherie SWANSON at receiving facility. Receiving physician is Dr. Tillman. [facility] ambulance service has been called for transfer.
== END 2020-06-01 03:26 | disposition short-term general hospital (02) ==
LOC: SED 22:30
DX: S06.5X0A Traumatic subdural hemorrhage without loss of consciousness, initial encounter (principal); I10 Essential (primary) hypertension; Z20.822 Contact with and (suspected) exposure to COVID-19; W19.XXXA Unspecified fall, initial encounter; Y93.89 Activity, other specified; Y92.89 Other specified places as the place of occurrence of the external cause; Y99.8 Other external cause status
CPT/HCPCS: 36415; 70450-TC; 71045; 76376; 80053; 80307; 81003; 82009-TC; 82550-TC; 82962; 83605; 84484; 85025; 85610-TC; 85730-TC; 93005; 99285; 99291

== ENCOUNTER 2020-08-19 10:41 | Outpatient (CLI) | payer BC | END 2020-08-19 20:42 | disposition home or self-care (01) | LOC: SRD 10:41 | PROVIDERS: ATTEND Internal Medicine Pulmonary Disease | DX: R05 Cough (principal); Z86.16 Personal history of COVID-19 | CPT/HCPCS: 71046-TC ==

== ENCOUNTER 2020-12-22 14:00 | Emergency (ER) | payer BC ==
[~2020-12-22] VITALS: Ht 167.6 cm; Wt 81.6 kg
[2020-12-22 14:05] VITALS: BP_SYST 94
--- NOTE | 2020-12-22 14:05 | NUR ---
Patient to ER bed 3 to gown for evaluation. Side rails up. Report given to LAURO SWANSON.
--- NOTE | 2020-12-22 14:07 | NUR ---
ER at bedside examining patient.
[2020-12-22] MEDS ORDERED: ADENOSINE 6MG/2ML VIAL IVP ONE (14:30)
--- NOTE | 2020-12-22 14:30 | NUR ---
# 18 gauge angiocath placed to LAC. Use of asceptic technique. Opsite placed over site. Blood return noted. Blood for lab drawn from site. Flushed with 10 cc of normal saline. No evidence of infiltration noted. Patient tolerated well.
[2020-12-22 15:01] LABS: BASOPHILS # (AUTO) 0.1 K/uL (0.0-0.2); BASOPHILS % (AUTO) 0.9 % (0.0-2.0); EOSINOPHILS % (AUTO) 0.5 % (0.0-4.0); HEMATOCRIT 44.6 % (36-48); HEMOGLOBIN 15.2 g/dL (12.0-16.0); LYMPHOCYTES # (AUTO) 2.7 K/uL (1.0-5.5); MEAN CORPUSCULAR HEMOGLOBIN 31 pg (27-31); MEAN CORPUSCULAR HGB CONC 34 % (32-36); MEAN CORPUSCULAR VOLUME 92 fL (79.0-98.0); MONOCYTES # (AUTO) 0.5 K/uL (0.0-1.0); MONOCYTES % (AUTO) 5.4 % (1.7-9.3); NEUTROPHILS # (AUTO) 6.2 K/uL (1.8-7.7); NEUTROPHILS % (AUTO) 65.2 % (40.0-70.0); PLATELET COUNT (AUTO) 237 K/uL (130-430); RED BLOOD CELL COUNT(AUTO) 4.85 MIL/uL (4.2-6.2); RED CELL DISTRIBUTION WIDTH 15.1 % (9.0-15.0); WHITE BLOOD COUNT (AUTO) 9.5 K/uL (4.8-10.8)
--- NOTE | 2020-12-22 15:36 | NUR ---
calm, alert, resp unlabored, skin warm and dry. communicates clearly in full complete senteces. no distress
[2020-12-22 15:37] LABS: ANION GAP 13 (5-15); CALCIUM 9.1 mg/dL (8.4-11.0); CHLORIDE 105 mmol/L (98-107); CREATININE 0.93 mg/dL (0.55-1.30); GLUCOSE 161 mg/dL (70-99); POTASSIUM 3.6 mmol/L (3.5-5.1); SODIUM SERUM 144 mmol/L (136-145); UREA NITROGEN, BLOOD 14 mg/dL (8-21)
[2020-12-22 15:43] LABS: ALANINE AMINOTRANSFERASE 34 U/L (12-78); ALBUMIN 3.5 g/dL (3.4-4.8); ASPARTATE AMINOTRANSFERASE 28 U/L (10-37); TOTAL BILIRUBIN 0.6 mg/dL (0.0-1.0)
--- NOTE | 2020-12-22 16:15 | NUR ---
Patient given written and verbal discharge instructions and verbalizes understanding. ER MD discussed with patient the results and treatment provided. Patient in stable condition. ID arm band removed. IV catheter removed intact and dressing applied, no active bleeding. No prescriptions given. Patient educated on pain management and to follow up with PMD. Pain Scale 0. Opportunity for questions provided and answered. Medication side effect fact sheet provided.
[2020-12-22 16:18] VITALS: BP_SYST 117
== END 2020-12-22 16:15 | disposition home or self-care (01) ==
LOC: SED 14:00
DX: I47.1 Supraventricular tachycardia (principal); I48.91 Unspecified atrial fibrillation; I10 Essential (primary) hypertension; Z79.899 Other long term (current) drug therapy
CPT/HCPCS: 36415; 71045; 80053; 83880; 84484; 85025; 85610; 85730; 93005; 96374; 99285; J0153